=== PATIENT | female | born 1950 | race Caucasian/White ===

== ENCOUNTER → 2024-08-20 | Outpatient (CLI) | payer MEDICARE, BC, SELFPAY ==
--- NOTE | 2024-08-20 10:30 | XR_ITS ---
Examination: Abdomen sonogram, Limited Date and time of exam: August 20, 2024 1030 hours INDICATIONS: Fatty liver diagnosis Technique: Real-time carpenter scale transabdominal sonographic images of the upper abdomen obtained. Findings: Contracted gallbladder Common bile duct 0.2 cm Pancreatic head 2.0 cm Liver 12.6 cm fatty infiltration no focal liver lesions Normal hepatopedal portal venous flow Patent IVC IMPRESSION: Repeat the gallbladder portion of the study with fasting Fatty liver
== END | disposition home or self-care (01) ==
LOC: CDIM 10:24
PROVIDERS: PCP Family Medicine; Referring Provider Nurse Practitioner Family; Visit Provider Nurse Practitioner Family
DX: K76.0 Fatty (change of) liver, not elsewhere classified (principal)
CPT/HCPCS: 76705

== ENCOUNTER → 2024-10-08 | Outpatient (CLI) | payer MEDICARE, BC, SELFPAY ==
[2024-10-21 06:56] LABS: Albumin 4.4 g/dL (3.6-5.1); Estradiol, Free 0.03 pg/mL; Estradiol, Total 2 pg/mL; SHBG 108 nmol/L (14-73); Testosterone, Bioavailable 0.9 ng/dL (0.5-8.8); Testosterone, Free 0.5 pg/mL (0.3-5.0); Testosterone,Total 11 ng/dL (2-45)
== END | disposition home or self-care (01) ==
LOC: COPL 16:24
PROVIDERS: PCP Internal Medicine; Referring Provider Internal Medicine; Visit Provider Internal Medicine
DX: F32.89 Other specified depressive episodes (principal)
CPT/HCPCS: 36415; 82040; 82670; 82681; 84270; 84403

== ENCOUNTER 2024-11-24 09:13 | Emergency (ER) | payer MEDICARE, BC, SELFPAY ==
--- NOTE | 2024-11-24 09:20 | XR_ITS ---
Examination: Left knee 4 views TECHNIQUE: AP oblique lateral axial left knee 4 views 16/04/2020 11/24/2024 0953 hours INDICATIONS: Patient fell today with injury to the knee, knee pain FINDINGS: Acute comminuted fracture patella with 3 main fracture fragments widely Femur tibia fibula appear intact IMPRESSION: Acute comminuted fractures patella with 3 main fracture fragments widely
[2024-11-24 09:22] VITALS: BP 189/98; PULSE 75; PULSE 78; RESP 20; TEMP 36.8; O2SAT 97; BMI 24.1
--- NOTE | 2024-11-24 09:31 | PC.NURSE ---
PATIENT ARRIVED ED VIA EMS SECONDARY TO FALL AND LANDING ON LEFT KNEE. PATIENT WITH POSITION OF COMFORT WITH DEFORMITY TO KNEE CAP AREA. EMS ESTABLISHED IV, ADMINISTERED 50 MEQ FENTANYL. PATIENT ALERT AND OREINTED AT TIME OF ARRIVAL WITH PAIN 5/10 ON PAIN SCALE. PATIENT PLACED IN GOWN AND VITALS OBTAINED. DR. GUERRERO AT BEDSIDE FOR EVALUATION. PATIENT IN POSITION OF COMFORT, CALL LIGHT WITHIN REACH.
--- NOTE | 2024-11-24 09:49 | PD.EDLOWEX ---
Lower Extremity Injury RME/HPI General Chief Complaint: Extremity Injury, Lower Stated Complaint: LEFT KNEE PAIN Time Seen by Provider: 11/24/24 09:19 Arrival date/time: 11/24/24 09:13 RME / HPI RME / HPI Narrative: 73 year old female presented to the ER BIB[facility] with a chief complain of an injury to the left knee. Per patient, she was standing up out of her chair after eating breakfast and felt dizzy and fell onto the floor, landing on her left knee and then continued falling flat on her back. Patient stated that she has no severe pain without movement but with movement has pain. Per EMS, fetany was given prior to arrival. Related Data Home Medications ?Medication ?Instructions ?Recorded ?Confirmed amlodipine 5 mg tablet 5 mg PO QDAY 10/22/20 11/24/24 gabapentin 100 mg capsule 300 mg PO QHS 10/22/20 11/24/24 fluoxetine 20 mg capsule (Prozac) 20 mg PO QDAY 11/24/24 11/24/24 Previous Rx's ?Medication ?Instructions ?Recorded hydrocodone 5 mg-acetaminophen 325 1 tab PO Q6H PRN pain #14 tabs 11/24/24 mg tablet Allergies Allergy/AdvReac Type Severity Reaction Status Date / Time Sulfa (Sulfonamide Allergy Verified 10/19/23 09:13 Antibiotics) Review of Systems Review of Systems Systems Reviewed: All systems reviewed, normal except as documented Narrative Review of Systems: ROS Gen: No fever, no chills, no weight loss EYES: No discharge, no visual changes, no pain HEENT: No ear pain, no congestion, no sore throat PULM: No shortness of breath, no cough, no congestion CV: No chest pain, no dyspnea on exertion, no palpitations GI: No nausea, no vomiting, no diarrhea, no pain, no constipation : No frequency, no urgency, no dysuria Musc/skel: +left knee pain, no back pain Skin: No rash Psyc: No hallucinations, no depression Heme/Lymph: No easy bleeding or bruising tendencies Neuro: No weakness, no headache ED Exam Narrative Physical exam: GENERAL APPEARANCE: alert and oriented x 4, well-developed, well-nourished, no acute distress HEENT: Normocephalic, atraumatic; pupils equal, round, reactive to light; EOMI; mucous membranes pink, moist; oropharynx clear NECK: Supple LUNGS: CTABL; no wheezes, no rales, no rhonchi HEART: Regular rate, regular rhythm; normal S1, S2; no murmurs ABDOMEN: non distended; normal BS; soft, no tenderness, no guarding, no rebound; no masses, no organomegaly, no hernia BACK: no CVA tenderness EXTREMITIES: joint infusion to left knee ; no edema NEUROLOGIC: awake; alert and oriented x4; cranial nerves II-XII grossly intact; no focal sensory or motor deficits PSYCHIATRIC: appropriate mood and affect SKIN: warm, dry, normal color; no rashes Course Quality Measures none Orders Category Date Time Status Apply knee immobilizer NOW Care 11/24/24 10:43 Active Crutches .NOW Care 11/24/24 10:43 Active XR knee comp LT 4V Stat Exams 11/24/24 09:20 Completed Morphine Inj Med 11/24/24 10:03 Discontinued 5 mg IVP X1 ONE Ondansetron Inj [Zofran Inj] Med 11/24/24 10:03 Discontinued 4 mg IV X1 ONE Vital Signs Vital signs: Vital Signs Temperature 98.3 F 11/24/24 09:22 Pulse Rate 75 11/24/24 09:22 Respiratory Rate 20 11/24/24 09:22 Blood Pressure 189/98 H 11/24/24 09:22 Pulse Oximetry (%) 97 11/24/24 09:22 Oxygen Delivery Method Room Air 11/24/24 09:22 Extremity Injury, Lower MDM Narrative MDM Narrative:: IHalima am scribing for and in the presence of Dr. Alas. Patient data External records reviewed:: [facility] previous records Clinical information provided by:: patient and EMS Social determinants that could affect healthcare access:: none Patient has the following chronic illnesses:: none How is presenting disease/condition affected by chronic disease/condition?: uneffected by Evaluation data The following diagnostics were reviewed and interpreted by me:: radiology exam(s) Lab and/or radiology exams considered but not ordered:: none Interpretation Summary: Knee X-Ray 4V, my interpretation: comminuted displaced patella fracture , no dislocation, see full report below. Ordering Physician: Latisha Alas MD Date of Service: 11/24/24 Procedure(s): XR knee comp LT 4V Accession Number(s): [id number] cc: Bernardo Ham MD; Latisha Alas MD~ Examination: Left knee 4 views TECHNIQUE: AP oblique lateral axial left knee 4 views 16/04/2020 11/24/2024 0953 hours INDICATIONS: Patient fell today with injury to the knee, knee pain FINDINGS: Acute comminuted fracture patella with 3 main fracture fragments widely Femur tibia fibula appear intact IMPRESSION: Acute comminuted fractures patella with 3 main fracture fragments widely Dictated By: Bernardo Ham MD Signed By: <Electronically signed by Bernardo Ham MD in OV> 11/24/24 1036 Medications / Prescriptions Medications or Prescriptions considered but not ordered:: none Medication administrations:: Medication Administration History Discontinued Medications Morphine Sulfate (Morphine Sulf Inj 10 Mg/Ml Vial) 5 mg IVP X1 ONE Stop: 11/24/24 10:04 Last Admin: 11/24/24 10:22 Dose: 5 mg Documented By: ITZ Ondansetron HCl (Ondansetron Inj 2 Mg/Ml Inj 2 Ml) 4 mg IV X1 ONE Stop: 11/24/24 10:04 Last Admin: 11/24/24 10:19 Dose: 4 mg Documented By: ITZ see above. Consultations Consultation(s) initiated? (list below): Yes Consultation #1 (Physician, Specialty, Details): I spoke with Dr. Kitchen, Orthopedic Surgeon, to consult about the knee fracture. Dr. Kitchen decided for patient for follow-up with a future appointment in outpatient. Time: 10:29 Diagnosis Extremity Injury, Lower Differential Diagnosis: acute internal derangement of knee and other (knee fracture) Most likely diagnosis given after review of the tests above:: patella fracture Admission Indicated Admission indicated?: not indicated Admission Request Was there a request for admission?: No Disposition Plan Disposition Plan: Discharge Discharge Attestation Discharge Attestation: The patient and all family members were given an opportunity to ask questions and understood the discharge instructions. Discharge instructions specifically effects, indications for sooner follow up or return to the emergency department, and the expected course of current diagnosis. Patient condition: Stable Discharge Plan Plan Patient Disposition: HOME (Self Care) Prescriptions/Referrals Prescriptions/Med Rec: New hydrocodone-acetaminophen 5-325 mg tablet 1 tab PO Q6H MDD 9 PRN (Reason: pain) Qty: 14 0RF No Action amlodipine 5 mg tablet 5 mg PO QDAY gabapentin 100 mg capsule 300 mg PO QHS fluoxetine [Prozac] 20 mg capsule 20 mg PO QDAY Referrals: Carlos Kitchen MD [Physician] - 11/25/24 3:00 pm Problem List Clinical Impression: Patellar fracture Patient/Caregiver Discharge Instructions Education Materials: ED Crutch Walking, ED Patella Fracture Additional Instructions: Follow up with Dr. Kitchen on 11/25/24 at 3pm. Print Language: Macedonian Stand Alone Forms: [facility] Award Info., Patient Portal Info Letter
[2024-11-24] MEDS: ONDANSETRON INJ 2 MG/ML INJ 2 ML 4 MG IV (10:19)
[2024-11-24] MEDS: MORPHINE SULF INJ 10 MG/ML VIAL 5 MG IVP (10:22)
[2024-11-24 10:29] VITALS: BP 149/93; PULSE 82; RESP 16; O2SAT 99
--- NOTE | 2024-11-24 11:15 | PC.NURSE ---
PATIENT UNDERSTANDS DIAGNOSIS AND FOLLOW UP CARE. LUIS WRAP AND KNEE IMMOBILIZER APPLIED. PATIENT TOLERATED WELL. PATIENT ALSO GIVEN CRUTCHES AND INSTRUCTIONS. PATIENT ABLE TO MOVE FROM BED TO CHAIR WITH ASSISTANCE.
== END 2024-11-24 11:31 | disposition home or self-care (01) ==
LOC: SERX 10:50
PROVIDERS: Emergency Provider Emergency Medicine; PCP Internal Medicine
DX: S82.042A Displaced comminuted fracture of left patella, initial encounter for closed fracture (principal); W18.39XA Other fall on same level, initial encounter
CPT/HCPCS: 73564; 96360; 96361; 99284; J2270; J2405

== ENCOUNTER 2024-11-29 07:40 | Day surgery (SDC) | payer MEDICARE, BC, SELFPAY ==
--- NOTE | 2024-11-28 11:31 | EKG_ITS ---
[facility] Test Date: 2024-11-28 Pat Name: ADALI LEAVITT Department: Room: - Gender: Female Communications Clerk: TIMI : 1950 Requested By: Carlos De Jesus Order Number: [id number] Reading MD: Carlos DeJ esus Measurements Intervals [place] Rate: 79 P: 56 CT: 170 QRS: 15 QRSD: 82 T: 36 QT: 383 QTc: 441 Interpretive Statements SINUS RHYTHM Compared to ECG 03/12/2020 13:53:45 T-wave abnormality no longer present /store/S0/[id number].pdf
[2024-11-28 11:37] VITALS: BMI 24.1
[2024-11-28 12:31] LABS: Basophils % (Auto) 0 % (0-2.5); Eosinophils # (Auto) 0.3 Thou/mm3 (0.0-0.5); Eosinophils % (Auto) 5 % (0-10); Hematocrit 32.2 % (36.0-46.0); Hemoglobin 10.4 g/dL (12.0-16.0); Immature Granulocytes % (Auto) 0 % (0-0); Immature Granulocytes Auto 0.02 Thou/mm3 (0.00-0.00); Lymphocytes # (Auto) 1.5 Thou/mm3 (1.0-4.8); Lymphocytes % (Auto) 23 % (10-50); Mean Corpuscular HGB Conc 32.3 g/dl (31.0-37.0); Mean Corpuscular Hemoglobin 30.6 pg (25.0-35.0); Mean Corpuscular Volume 95 fL (80-100); Monocytes # (Auto) 0.7 Thou/mm3 (0.0-0.8); Monocytes % (Auto) 10 % (0-12); Neutrophils # (Auto) 4.1 Thou/mm3 (1.8-7.7); Neutrophils % (Auto) 62 % (37-80); Nucleated Red Blood Cell % 0 /100 WBC (0); Platelet Count 234 Thou/mm3 (140-440); White Blood Count 6.7 Thou/mm3 (3.6-11.0)
[2024-11-28 12:44] LABS: Prothrombin Time 10.9 Seconds (9.0-12.2)
[2024-11-28 12:48] LABS: Partial Thromboplastin Time 23.4 Seconds (22.0-36.0)
--- NOTE | 2024-11-28 12:49 | XR_ITS ---
Examination: Left foot 2 views Technique one AP lateral left foot 2 views Exam date and time: November 28, 2024 1530 hours INDICATIONS: Patient fell 5 days ago with injury to foot, foot pain. FINDINGS: Prominent osteopenia Moderate narrowing first metatarsophalangeal joint No acute fracture IMPRESSION: No acute fracture
[2024-11-28 12:51] LABS: Alanine Aminotransferase 12 U/L (10-49); Albumin, Serum 4.2 gm/dL (3.4-4.8); Albumin/Globulin Ratio 1.8 (1.2-2.2); Alkaline Phosphatase 47 U/L (46-116); Anion Gap 8 (7-16); Aspartate Amino Transferase 16 U/L (0-34); BUN/Creatinine Ratio 18 Ratio (12-20); Bilirubin,Total 0.4 mg/dL (0.3-1.2); Blood Urea Nitrogen 14 mg/dL (9-23); Calcium 8.8 mg/dL (8.3-10.6); Calcium (Corrected) 8.8 mg/dL (8.5-10.1); Carbon Dioxide 27.9 mMol/L (20.0-31.0); Chloride 106 mMol/L (98-107); Creatinine (Component) 0.8 mg/dL (0.6-1.3); Globulin 2.3 gm/dL (2.3-3.5); Glucose 86 mg/dL (74-106); Osmolality,Calculated 282 (275-295); Potassium 4.4 mMol/L (3.4-5.1); Sodium 142 mMol/L (136-145); Total Protein 6.5 gm/dL (5.7-8.2); eGFR > 60 See Note
--- NOTE | 2024-11-28 15:02 | SUR.PREOP ---
Pt's Job notified to bring pt at 0730 tomorrow for surgery.
[2024-11-29] VITALS (14 sets, daily range): BP systolic 112–170; BP diastolic 73–97; PULSE 77–99; RESP 12–22; TEMP 36.1–36.7; O2SAT 93–98; BMI 25.1
--- NOTE | 2024-11-29 09:00 | SUR.PREOP ---
Patient expressed gratitude for prayer before their procedure.
[2024-11-29] MEDS: RINGERS LACTATED 1000 ML 1,000 ML 20 ML IV (09:07)
--- NOTE | 2024-11-29 09:15 | XR_ITS ---
Examination: Left knee 3 views Fluoroscopy TECHNIQUE: AP lateral left knee 3 views Fluoroscopy Exam date and time: November 29, 2024 1129 hours INDICATIONS: Acute comminuted patellar fractures November 24, 2024, operative reduction internal fixation patellar fractures today. FINDINGS: Operative reduction internal fixation patellar fractures with satisfactory alignment Fluoroscopy 34 seconds 3 spot fluoroscopic films radiation dose 0.68 milligray IMPRESSION: Operative reduction internal fixation patellar fractures with satisfactory alignment
--- NOTE | 2024-11-29 11:33 | ESOP_ITS ---
Date of Procedure 11/29/24 Pre Op Diagnosis Displaced fracture of the left patella Post Op Diagnosis Same Procedure Open reduction internal fixation with a small Caprice plate and screws Repair of the retinaculum Findings There is complete displaced fracture of the left patella. The retinaculum on each side was also torn. Procedure Description The patient was given general endotracheal anesthesia. The block was also given. Following that a tourniquet was placed on the left upper thigh. Part was thoroughly prepped and draped. Intravenous antibiotics was given at the time of anesthesia The skin was raised as a flap after making an incision. The length of the incision was about 6 to 7 inches starting from tibial tuberosity up 2 to 3 inches proximal to the upper pole of the patella. Following that the displaced fracture was exposed. Old clotted blood and soft tissue invaginated was removed The wound was irrigated with antibiotic solution. Following that the fracture was reduced and checked under C arm in both AP and lateral position. In the lateral position the articular surface was very well-maintained. Following that the template was used and decision was made to use the smallest plate with no arms. The plate was then mounted over the anterior aspect of the pedicle and checked under C arm. Following that it was anchored nicely with the help of guide pin. The proximal 2 holes were drilled and appropriate sized cortical screws were placed in the middle. Similarly 2 distal holes were drilled and appropriate side cortical screw was placed. Following that the other holes where bent as per the contour of the patella. Following that 3 more proximal interlocking screw and 4 distal interlocking screws were placed. After drilling and measuring appropriate sized screws were placed in each and every instance Position was repeatedly checked under C arm in lateral position and found to be extremely good. Articular surface was very well-maintained The soft tissue over the patella was then repaired with the help of 1 Vicryl. The patellar tendon was repaired with 1 Vicryl. The retinaculum was also re paired with 1 number Vicryl in interrupted fashion. The subcu tissue was closed with 2-0 Vicryl and the skin was closed with a erick Cleaning the wound with hydrogen peroxide solution and sterile dressing was applied. Knee immobilizer was placed Further management. Patient will be nonweight bear for about 6 weeks. Follow- up appointment will be given and patient will be seen within the next few days. Anesthesia GETA and other Pathology / specimen None Estimated Blood Loss 5 Surgeon Carlos K Fidelina, MD Surgical Staff Operation Date: 11/29/24 09:30 Case Staff Anesthesiologist: Robert Munoz RNspeech language therapist: Pedro Mays
--- NOTE | 2024-11-29 11:43 | XR_ITS ---
Examination: Left knee 2 views Technique one AP lateral left knee 2 views Exam date and time: November 29, 2024 1204 hours INDICATIONS: Acute patellar fractures November 24, 2024, status post operative reduction internal fixation patellar fractures today. FINDINGS: Operative reduction internal fixation comminuted patellar fractures with satisfactory alignment. Orthopedic hardware satisfactory position Severe osteopenia IMPRESSION: Operative reduction internal fixation comminuted patellar fractures with satisfactory alignment
--- NOTE | 2024-11-29 11:51 | SUR.PHASEI ---
1151: Pt. AAOx4, vitals stable, breathing unlabored, no complaint of pain or nausea, dressing to left knee CDI, knee immobilized in place, bilateral dorsalis pedis pulses strong and regular, cap refill to bilateral feet less than 3 seconds, report received from MD Munoz and Neftaly TORRES.
--- NOTE | 2024-11-29 12:10 | SUR.PHASEI ---
Rececived report on pt. s/p surgery from Jossie TORRES. Xray at bedside, pt. appears relaxed, AAOx3, VSS. Dressing to left knee CDI.
--- NOTE | 2024-11-29 12:43 | SUR.PHASEII ---
1243: Report received from Ayanna TORRES. Pt. AAOx4, vitals stable, breathing unlabored, no complaint of pain or nausea.
--- NOTE | 2024-11-29 14:20 | SUR.PHASEII ---
1420: Pt. AAOx4, vitals stable, breathing unlabored, no complaint of pain or nausea, dressing to left leg CDI, no active bleed noted, knee immobilized in place, bilateral dorsalis pedis pulses strong and regular, cap refill to bilateral feet less than 3 seconds, pt. able to move bilateral legs, pt. tolerated sips of water well, pt. ambulated to wheelchair with assist, no complications. Gave discharge instructions to the pt. and her ride, both verbalized understanding and had no further questions. Pt. left with all personal belongings.
--- NOTE | 2024-11-29 14:21 | ESHP_ITS ---
RE: ADALI LEAVITT : 1950 DATE OF ADMISSION: 11/29/2024 HISTORY OF PRESENT ILLNESS: The patient came to my office on 11/28/2024 for detailed preop history and physical examination. As per history available, the patient fell at home and injured her left knee. The patient was unable to put weight after that. The patient went to the emergency room. X-ray was obtained, which revealed displaced fracture of the left patella. The patient was given knee immobilizer and . PAST MEDICAL HISTORY: The patient has a history of gastric reflux. No history of diabetes mellitus, high blood pressure, asthma, seizures, chest pain, myocardial infarction, bleeding disorder. DRUG HISTORY: The patient is on; 1. Gabapentin. 2. Hydrocodone. 3. Lamotrigine. 4. Polyethylene glycol. 5. Amoxicillin. 6. Estradiol. ALLERGIES: NIL KNOWN. FAMILY HISTORY AND SOCIAL HISTORY: Noncontributory. PHYSICAL EXAMINATION: GENERAL: Normal built lady. Pulse is 88 per minute. Blood pressure is 126/82. NECK: Soft, supple. No masses felt. Trachea is centrally placed. CARDIOVASCULAR SYSTEM: First and second heart sounds normal. No murmur heard. LUNGS: Bilateral vesicular breath sounds. CHEST: Clear. ABDOMEN: Soft. No masses felt. Bowel sounds present. BREASTS: Not indicated in this case. RECTAL: The patient is advised to see the family physician for rectal examination. EXTREMITIES: Left knee examination reveals mild swelling. There is definite depression between the two poles of the patella. Range of motion not tested due to pain. Neurovascularly it is intact. Ecchymosis, bruise was present. DIAGNOSTIC DATA: X-ray confirmed displaced fracture of the left patella. ASSESSMENT AND PLAN: Diagnosis and prognosis was explained to the patient in detail. I explained that the patient needs surgical fixation to bring the kneecap together and then to put the plate and screws. With the help of pictures and diagram, it was shown to her. Risks of anesthesia were explained and that includes, but not limited to reaction to anesthetic agents, cardiac arrest, or rarely it might be fatal. Risks of operation includes infection and if that happens, the patient may need further surgical procedures sometimes rare complication happens, and if that happens that to be taken care of. No guarantee is given regarding the outcome of the procedure and/or functional outcome and/or pain relief and the patient is fully aware of that. Accordingly, surgery is booked for 11/29/2024. Appropriate lab was done. DT: 11:46:17 TT: 14:19:00 Ref: [id number] - TID: [id number]
--- NOTE | 2024-12-04 10:06 | PD.ANESPROG ---
Documentation for date of: 12/04/24 POST ANESTHESIA NOTE: Patient had GETA and L femoral block for L patella ORIF on 11/29/24. I just called and spoke with her on the phone and she denied any problems from anesthesia and said I'm doing well. Robert Munoz MD Anesthesia Progress Note Progress Note Most recent Vital Signs: Last Vital Signs Temp 98.0 F 11/29/24 14:10 Pulse 92 11/29/24 14:10 Resp 19 11/29/24 14:10 BP 112/73 11/29/24 14:10 Pulse Ox 96 11/29/24 14:10 O2 Flow Rate 2 11/29/24 12:40
== END 2024-11-29 14:20 | disposition home or self-care (01) ==
PROVIDERS: PCP Internal Medicine; Referring Provider Orthopaedic Surgery; Visit Provider Orthopaedic Surgery
PROC: (CPT 27524; principal; 2024-11-29 09:15)
DX: S82.002A Unspecified fracture of left patella, initial encounter for closed fracture (principal); I10 Essential (primary) hypertension; W19.XXXA Unspecified fall, initial encounter; Y92.009 Unspecified place in unspecified non-institutional (private) residence as the place of occurrence of the external cause; Z01.810 Encounter for preprocedural cardiovascular examination
CPT/HCPCS: 27524; 36415; 73560; 73620; 76000; 80053; 85025; 85610; 85730; 93005; A4649; C1713; J0690; J1100; J1171; J2250; J2405; J2704; J2795; J3010; J3490; J7120; L1832

== ENCOUNTER 2024-12-09 09:34 | Observation (INO) | payer MEDICARE, BC, SELFPAY ==
[2024-12-09] VITALS (25 sets, daily range): BP systolic 121–180; BP diastolic 74–99; PULSE 61–92; RESP 8–100; TEMP 36.5–36.8; O2SAT 94–100; BMI 24.1
--- NOTE | 2024-12-09 | XR_ITS ---
Examination: MRI brain without intravenous contrast. Date and time of exam: December 09, 2024 1307 hours INDICATIONS: Altered mental status with dizziness beginning this morning Technique: Multiple axial and sagittal images of the brain obtained. Siemens high-resolution 1.5 Avril short bore scanners utilized. Sagittal sections, T1-weighted, TR 500, TE 14, are performed. Axial sections proton-density and T2-weighted have been obtained. Inversion recovery axial images, TR 9, 260, TE 111, TI 2500. Diffusion weighted images, axial sections, TR 4800, TE 128, B value 1000 Axial sections, ADC map, TR 4800, TE 128 Findings: Enlargement of the sella turcica is not present. The optic chiasm and infundibular are not remarkable. Prepontine and interpeduncular cisterns are not enlarged. There is no localized enlargement of the medulla or ryan. Fourth ventricle and cerebellar tonsils appear normal in position. No subacute area of hemorrhage density is seen. Mass in the cerebellopontine angle region is not evident. Globes symmetrical. Orbital musculature including medial lateral rectus muscles do not exhibit abnormality. Diffusion-weighted images demonstrate no focus of restricted diffusion. Increased white matter signal prominent Mass effect upon the ventricular system is not identified. Impression: Negative for acute hemorrhage mass effect or midline shift No acute infarct Prominent chronic microvascular white matter change
--- NOTE | 2024-12-09 09:58 | EKG_ITS ---
[facility] Test Date: 2024-12-09 Pat Name: ADALI LEAVITT Department: Room: - Gender: Female Manager Medical Affairs: : 1950 Requested By: Stanislav Jalloh Order Number: [id number] Reading MD: Stanislav Jalloh Measurements Intervals [place] Rate: 67 P: 42 MN: 184 QRS: 23 QRSD: 90 T: 44 QT: 418 QTc: 443 Interpretive Statements SINUS RHYTHM Compared to ECG 11/28/2024 12:32:23 No significant changes /store/S0/[id number]/[id number]
--- NOTE | 2024-12-09 10:03 | PD.EDWEAK ---
ED Weakness RME/HPI General Chief complaint: Altered Mental Status Stated complaint: WEAKNESS Time Seen by Provider: 12/09/24 09:53 Arrival date/time: 12/09/24 09:34 Limitations: no limitations RME / HPI RME / HPI Narrative: DR. NGUYEN MAIN ED EVALUATION: 73 year old female presents to the Emergency Department [facility] accompanied by with complaints of increased generalized weakness, slurred speech, headache, and dizziness since 845 AM, episode only lasted 10-15 minutes. At 10 AM when I saw her she states she felt better. Patient states she took hydrocodone 5 mg at 8 AM and right after she felt sick; she states she usually takes naproxen but not hydrocodone and now she did for the pain. Patient had recent left leg surgery for knee cap fracture a week ago; patient has left leg swelling. No chest pain, no abdominal pain, or other symptoms reported at this time. PMHx: Hypertension on amlodepine, Sweet's autoimmune syndrome, and recent left knee cap fracture surgery. Social Hx: No tobacco, alcohol, or substance use. Related Data Home Medications ?Medication ?Instructions ?Recorded ?Confirmed amlodipine 5 mg tablet 10 mg PO QDAY 10/22/20 11/29/24 gabapentin 100 mg capsule 300 mg PO .COMPLEX 10/22/20 11/29/24 fluoxetine 20 mg capsule (Prozac) 40 mg PO QDAY 11/24/24 11/29/24 colchicine 0.6 mg tablet 0.6 mg PO DAILY 11/28/24 11/29/24 estradiol 0.025 mg/24 hr mg topical 11/28/24 semiweekly transdermal patch fluticasone propionate 50 intranasal 11/28/24 mcg/actuation nasal spray,suspension lamotrigine 100 mg tablet,extended mg PO 11/28/24 release 24 hr naproxen 500 mg tablet mg 11/28/24 omeprazole 20 mg capsule,delayed mg 11/28/24 release progesterone micronized 200 mg mg 11/28/24 capsule Previous Rx's ?Medication ?Instructions ?Recorded hydrocodone 5 mg-acetaminophen 325 1 tab PO Q6H PRN pain #14 tabs 11/24/24 mg tablet Allergies Allergy/AdvReac Type Severity Reaction Status Date / Time Sulfa (Sulfonamide Allergy Verified 11/29/24 08:42 Antibiotics) Review of Systems Review of Systems Systems Reviewed: All systems reviewed, normal except as documented Past Medical History Past Medical History NEUROLOGIC: Positive Head Trauma (fell 8 days ago) CARDIAC: Positive Hypercholesterolemia (09/20/2023) and Hypertension RESPIRATORY: Positive Respiratory Disorders and Asthma REPRODUCTIVE: Positive Endometriosis and Previous Pregnancies (x3 natural) MUSCULOSKELETAL: Positive Musculoskeletal Disorders (carpal tunnel both) ENT: Positive Cataracts (both and skin removed from eyes) and Head Trauma (fell 8 days ago) HEMATOLOGIC: Positive Blood Disorders and Anemia PSYCHO/SOCIAL: Positive Psychiatric Problems, Depression and Anxiety OTHER HISTORY: Positive Autoimmune Disease (sweets autoimmune disease), Falls and Chemotherapy (miss diagnosed with RA, methotrexate injection and enbrel) Surgical History SURGICAL: Positive Cardiac Surgery (vein surgery), Knee Sx (LEFT) and Tubal Ligation Social History SMOKING STATUS: Never smoker SUBSTANCE USE: does not use ALCOHOL: Never ED Exam General Limitations: Present no limitations General appearance: Present alert, in no apparent distress and other (pale) Head Head exam: Present atraumatic, normocephalic and normal inspection Eye Eye exam: Present normal appearance, PERRL and EOMI ENT ENT exam: Present normal exam, normal oropharynx and mucous membranes moist Neck Neck exam: Present normal inspection, full ROM and trachea midline Chest Chest inspection: Present normal inspection and symmetric chest wall rise Respiratory Respiratory exam: Present normal lung sounds bilaterally Cardiovascular Cardiovascular exam: Present regular rate, normal rhythm and normal heart sounds Abdominal Exam Abdominal exam: Present soft and normal bowel sounds Extremities Exam Extremities exam: Present pedal edema (1+ edema of left leg) and other (left leg brace) Back Exam Back exam: Present normal inspection and full ROM Neurological Exam Neurological exam: Present alert, oriented X3 and CN II-XII intact Psychiatric Psychiatric exam: Present normal affect and normal mood Skin Skin exam: Present warm, dry, intact and normal color Course Quality Measures none Orders Category Date Time Status Bedside Blood Glucose NOW Care 12/09/24 10:19 Active COVID-19 Screening Questionnaire NOW Care 12/09/24 16:58 Active Ceramics Artist NOW Care 12/09/24 10:20 Active Continuous Pulse Oximetry NOW Care 12/09/24 10:19 Completed Decision to Admit X1 Care 12/09/24 16:57 Active EKG (ED ONLY) *Do not use* NOW Care 12/09/24 09:58 Completed Insert IV NOW Care 12/09/24 10:21 Active MRI Screening NOW Care 12/09/24 10:23 Active NPO NOW Care 12/09/24 10:21 Active Consult to Neurology / Tele-Neurology Stat Cons 12/09/24 14:14 Active Consult to Neurology / Tele-Neurology Stat Cons 12/09/24 16:58 Active EKG (ED Only) Stat Exams 12/09/24 09:58 Draft MR head/brain wo con Stat Exams 12/09/24 Completed US venous doppler LE BI Stat Exams 12/09/24 14:47 Completed Acetaminophen Stat Lab 12/09/24 10:00 Completed Alcohol, Blood Medical Stat Lab 12/09/24 10:00 Completed CBC Stat Lab 12/09/24 10:00 Completed Comprehensive Metabolic Panel Stat Lab 12/09/24 10:00 Completed Drug Screen,Urine Stat Lab 12/09/24 11:20 Completed Magnesium Stat Lab 12/09/24 10:00 Completed Salicylate Stat Lab 12/09/24 10:00 Completed Troponin I Stat Lab 12/09/24 10:00 Completed Urinalysis Stat Lab 12/09/24 11:20 Completed LORazepam [Ativan Inj] Med 12/09/24 12:01 Discontinued 0.5 mg IVP X1 ONE Sodium Chloride 0.9% 500 ml [Ns] 500 ml Med 12/09/24 10:19 Discontinued IV 500 mls/hr Oxygen Delivery NOW RT 12/09/24 10:21 Active Vital Signs Vital signs: Vital Signs Temperature 97.7 F 12/09/24 09:39 Pulse Rate 70 12/09/24 09:39 Respiratory Rate 17 12/09/24 09:39 Blood Pressure 143/80 H 12/09/24 09:39 Pulse Oximetry (%) 100 12/09/24 09:39 Oxygen Delivery Method Room Air 12/09/24 09:39 Weakness MDM Narrative MDM Narrative:: I, Maribel Shaikh, am scribing for and in the presence of Dr. Nguyen. At 1413 hours, MRI came back negative. Acute confusion resolved. Multifactorial causing confusion. No acute stroke. I spoke to daughter a couple of times, she is concerned about the patient. Daughter is concerned that the patient has left flank pain, patient did not complain of pain. She recently had knee cap repair surgery asked about doing about d-dimer but from her recent surgery I opted for an ultrasound instead to rule out DVT. Patient data External records reviewed:: EMS form Clinical information provided by:: patient, EMS and family Social determinants that could affect healthcare access:: none Patient has the following chronic illnesses:: Hypertension on amlodepine, Sweet's autoimmune syndrome, and recent left knee cap fracture surgery. How is presenting disease/condition affected by chronic disease/condition?: exacerbated by Evaluation data The following diagnostics were reviewed and interpreted by me:: lab results, radiology exam(s) and EKG tracing(s) Lab and/or radiology exams considered but not ordered:: none Interpretation Summary: EKG#1: EKG at 1001 hours. Interpreted by me: sinus rhythm, rate 67, no acute changes, SC interval 184 ms, QRS duration 90 ms, QT/QTc 418/433, P-R-T axis 42, 23, and 44 Procedure(s): MR head/brain wo con Accession Number(s): [id number] cc: Stanislav Nguyen MD; Bernardo Ham MD; Reyna Robison MD~ Examination: MRI brain without intravenous contrast. Date and time of exam: December 09, 2024 1307 hours INDICATIONS: Altered mental status with dizziness beginning this morning Technique: Multiple axial and sagittal images of the brain obtained. Siemens high-resolution 1.5 Avril short bore scanners utilized. Sagittal sections, T1-weighted, TR 500, TE 14, are performed. Axial sections proton-density and T2-weighted have been obtained. Inversion recovery axial images, TR 9, 260, TE 111, TI 2500. Diffusion weighted images, axial sections, TR 4800, TE 128, B value 1000 Axial sections, ADC map, TR 4800, TE 128 Findings: Enlargement of the sella turcica is not present. The optic chiasm and infundibular are not remarkable. Prepontine and interpeduncular cisterns are not enlarged. There is no localized enlargement of the medulla or ryan. Fourth ventricle and cerebellar tonsils appear normal in position. No subacute area of hemorrhage density is seen. Mass in the cerebellopontine angle region is not evident. Globes symmetrical. Orbital musculature including medial lateral rectus muscles do not exhibit abnormality. Diffusion-weighted images demonstrate no focus of restricted diffusion. Increased white matter signal prominent Mass effect upon the ventricular system is not identified. Impression: Negative for acute hemorrhage mass effect or midline shift No acute infarct Prominent chronic microvascular white matter change Dictated By: Bernardo Ham MD Medications / Prescriptions Medications or Prescriptions considered but not ordered:: none Medication administrations:: Medication Administration History Discontinued Medications Sodium Chloride (Ns) 500 mls @ 500 mls/hr IV .Q1H ONE Stop: 12/09/24 11:18 Last Infusion: 12/09/24 12:19 Dose: Infused Documented By: Admin: 12/09/24 11:11 Dose: 500 mls/hr Documented By: ABBIE Lorazepam (Lorazepam 2 Mg/Ml Vial) 0.5 mg IVP X1 ONE Stop: 12/09/24 12:02 Last Admin: 12/09/24 12:52 Dose: 0.5 mg Documented By: ABBIE see above Consultations Consultation(s) initiated? (list below): Yes Consultation #1 (Physician, Specialty, Details): Discussed test HPI, PMHx, lab, radiology results and/or management with neurologist Dr. Mitchell. Will do a remote consultation. Time: 14:17 Consultation #2 (Physician, Specialty, Details): Discussed test HPI, PMHx, lab, radiology results and/or management with neurologist Dr. Mitchell. Will consult an admission to the hospitalist. Time: 16:52 Consultation #3 (Physician, Specialty, Details): Discussed test HPI, PMHx, lab, radiology results and/or management with resident working with the hospitalist. Will admit for further evaluation and management. Accepts patient for admission. Time: 17:03 Diagnosis Weakness Differential Diagnosis: sepsis, dehydration and other (TIA) Most likely diagnosis given after review of the tests above:: Acute confusion resolved Admission Indicated Admission indicated?: indicated Admission Request Was there a request for admission?: Yes Admission Attestation Admission request attestation: Discussed case with [] from Hospitalist service regarding admission. Discussed patients ED course, exam findings, labs, and radiology results. The Hospitalist [agrees,declines] to accept the patient for admission. Disposition Plan Disposition Plan: Admit Discharge Plan Plan Patient Disposition: HOME (Self Care) Patient condition on transfer: Stable Prescriptions/Referrals Prescriptions/Med Rec: No Action amlodipine 5 mg tablet 10 mg PO QDAY gabapentin 100 mg capsule 300 mg PO .COMPLEX Rx Instructions: 300 mg orally 4x daily; fluoxetine [Prozac] 20 mg capsule 40 mg PO QDAY hydrocodone-acetaminophen 5-325 mg tablet 1 tab PO Q6H MDD 9 PRN (Reason: pain) Qty: 14 0RF progesterone micronized 200 mg capsule Patient Comments: TAKE 1 CAPSULE BY MOUTH EVERY DAY AT BEDTIME FOR 30 DAYS omeprazole 20 mg capsule,delayed release(DR/EC) Patient Comments: TAKE 1 CAPSULE BY MOUTH EVERY DAY colchicine 0.6 mg tablet 0.6 mg PO DAILY Patient Comments: TAKE 1 TABLET BY MOUTH EVERY DAY fluticasone propionate 50 mcg/actuation spray,suspension INTRANASAL Patient Comments: INSTILL 1 SPRAY INTO EACH NOSTRIL ONCE A DAY DIRECTED FOR 30 DAYS naproxen 500 mg tablet estradiol 0.025 mg/24 hr patch semiweekly TOPICAL Patient Comments: APPLY 1 PATCH TRANSDERMALLY TWICE A WEEK lamotrigine 100 mg tablet extended release 24hr PO Patient Comments: TAKE 1 TABLET BY MOUTH TWICE A DAY Referrals: Reyna Robison MD [Primary Care Provider] - In 1 week Problem List Clinical Impression: Acute confusion Patient/Caregiver Discharge Instructions Education Materials: ED Confusion Additional Instructions: For pain take x2 500 mg tablets (total 1,000 mg) of Tylenol plus your naproxen. Please follow-up with your primary care physician within a week. Return to the Emergency Department as needed. Print Language: Monegasque Stand Alone Forms: [facility] Award Info., Patient Portal Info Letter
--- NOTE | 2024-12-09 10:15 | PC.NURSE ---
NO DEBORA ALERT PER DR. NGUYEN
[2024-12-09 11:10] LABS: Basophils % (Auto) 1 % (0-2.5); Eosinophils # (Auto) 0.4 Thou/mm3 (0.0-0.5); Eosinophils % (Auto) 6 % (0-10); Hemoglobin 10.9 g/dL (12.0-16.0); Immature Granulocytes % (Auto) 1 % (0-0); Immature Granulocytes Auto 0.04 Thou/mm3 (0.00-0.00); Lymphocytes # (Auto) 1.7 Thou/mm3 (1.0-4.8); Lymphocytes % (Auto) 26 % (10-50); Mean Corpuscular HGB Conc 32.1 g/dl (31.0-37.0); Mean Corpuscular Volume 97 fL (80-100); Monocytes # (Auto) 0.6 Thou/mm3 (0.0-0.8); Monocytes % (Auto) 9 % (0-12); Neutrophils # (Auto) 3.9 Thou/mm3 (1.8-7.7); Neutrophils % (Auto) 58 % (37-80); Nucleated Red Blood Cell % 0 /100 WBC (0); Platelet Count 304 Thou/mm3 (140-440); RDW Standard Deviation 49.1 fL (36.4-46.3); Red Blood Count 3.52 Miln/mm3 (4.00-5.20); White Blood Count 6.8 Thou/mm3 (3.6-11.0)
[2024-12-09] MEDS: SODIUM CHLORIDE 0.9% 500 ML 500 ML IV (11:11)
[2024-12-09 11:17] LABS: Acetaminophen < 2.0 mcg/mL (10.0-20.0); Alanine Aminotransferase 13 U/L (10-49); Albumin/Globulin Ratio 1.7 (1.2-2.2); Alcohol, Blood Medical < 3.0 mg/dL (0-10.0); Alkaline Phosphatase 56 U/L (46-116); Anion Gap 9 (7-16); Aspartate Amino Transferase 15 U/L (0-34); BUN/Creatinine Ratio 30 Ratio (12-20); Bilirubin,Total 0.4 mg/dL (0.3-1.2); Blood Urea Nitrogen 24 mg/dL (9-23); Calcium 8.3 mg/dL (8.3-10.6); Calcium (Corrected) 8.3 mg/dL (8.5-10.1); Carbon Dioxide 27.8 mMol/L (20.0-31.0); Chloride 107 mMol/L (98-107); Creatinine (Component) 0.8 mg/dL (0.6-1.3); Globulin 2.4 gm/dL (2.3-3.5); Glucose 76 mg/dL (74-106); Magnesium 2.2 mg/dL (1.6-2.6); Osmolality,Calculated 289 (275-295); Salicylate < 3.0 mg/dL; Sodium 144 mMol/L (136-145); Total Protein 6.4 gm/dL (5.7-8.2); Troponin I < 0.002 ng/mL (0.0-0.045); eGFR > 60 See Note
[2024-12-09 11:44] LABS: Collection Type, Urine Clean Catch; Squamous Epithelial Cell,Urine 0 /hpf (0-5)
[2024-12-09 12:18] LABS: Bilirubin,Urine Negative (Negative); Blood,Urine Negative (Negative); Clarity,Urine Clear (Clear/Hazy); Glucose, Urine Negative (Negative); Ketones,Urine Negative (Negative); Leukocyte Esterase,Urine Negative (Negative); Nitrite,Urine Negative (Negative); PH,Urine 7.5 (5.0-7.0); Protein,Urine Negative (Neg - Trace); RBC,Urine < 1 /hpf (0-3); Specific Gravity,Urine 1.011 (1.001-1.035); Urobilinogen,Urine Negative mg/dL (0.0-1.0); WBC,Urine < 1 /hpf (0-5)
[2024-12-09 12:41] LABS: Color,Urine Lt-Yellow (Lt Yel-Yel)
[2024-12-09] MEDS: LORazepam 2 MG/ML VIAL 0.5 MG IVP (12:52)
[2024-12-09 13:05] LABS: Amphetamine/Methamp Scrn,U Negative (Negative); Barbiturate Screen,Urine Negative (Negative); Benzodiazepines Screen,Urine Negative (Negative); Benzoylecgonine Screen, Ur Negative (Negative); Fentanyl Screen,Urine Negative (Negative); Opiate Screen,Urine Negative (Negative); THC Screen,Urine Negative (Negative)
--- NOTE | 2024-12-09 14:47 | XR_ITS ---
Examination: Venous duplex lower extremity sonogram, bilateral. Date and time of exam: December 09, 2024 1525 hours INDICATIONS: Knee surgery one week ago followed by leg pain and swelling Technique: Multiple sonographic images of the deep venous system have been obtained. B-mode/2-D grayscale imaging of vascular structures and Doppler spectral analysis (waveforms) and color performed Both legs are examined. Findings: Deep venous systems do not demonstrate abnormal echogenicity. All visualized deep veins exhibit compressibility. All visualized deep veins exhibit augmentation. Impression: Negative for deep vein thrombosis
--- NOTE | 2024-12-09 16:50 | PC.NURSE ---
DAUGHTER REQUESTED TO SPEAK WITH CHARGE NURSE. I WENT IN TO SPEAK WITH PATIENT AND DAUGHTER. DAUGHTER CONCERNED THAT PATIENT MAY HAVE ANOTHER EVENT AT HOME AND WANTS A SECOND OPINION. DOES NOT FEEL IT WAS A TIA. I TOLD DAUGHTER THAT I FULLY UNDERSTAND HER CONCERNS THAT THE ER MD DID A FULL WORKUP AND EXPEDITED THE MRI WHICH WAS NORMAL. MD ALSO HAVE THE NEUROLOGIST DR PARKS EVALUATE PT AND SHE STATED PT HAD A TIA AND FELT PT COULD GO HOME AND FOLLOW UP. AT THIS TIME PT ALERT AND ORIENTED, MOVING ALL EXTREMITIES WELL AND EQUAL. I TOLD THE DAUGHTER THAT I WILL TALK TO MD AND SEE IF THEY CAN TRY AND ADMIT PT FOR OBSERVATION
--- NOTE | 2024-12-09 18:28 | PD.RESHP ---
Documentation for date of: 12/09/24 HPI History of Present Illness Chief complaint: Altered Mental Status History of present illness: HPI: Patient seen with daughter at bedside. Patient is a 73-year-old female with past medical history significant for Sweet syndrome, anxiety, depression, spondylosis, history of DVT and PE [2020], varicose veins and primary hypertension presented today with a chief complaint of altered mental status. Around 8:30 AM close patient's last known well. She was talking to her daughter on the phone when she took a hydrocodone along with her morning medication [lamotrigine, fluoxetine, gabapentin, amlodipine]. Subsequently she developed slurred speech, double vision confusion as reported by her daughter. This was also associated with a 10/10 occipital headache, no radiation and no aggravating or relieving symptoms. Denies any presyncope/syncope, palpitations, lightheadedness, chest pain/pressure, sick contacts and recent travel. Upon arrival to the ED at 10:30 AM patient's symptoms had completely resolved. Patient follows up with orthopedic surgeon, Dr. Kitchen and neurologist Dr. Mitchell. ED course: BP 159/74, pulse 74, RR 17, temp 98.1 F, SpO2 100 mL. Hb 10.9, HCT 34 BUN 24, CR 0.8 and corrected calcium 8.37. MR brain showed chronic microvascular white matter changes. In the ED patient received 500 cc normal saline IVF bolus and lorazepam 0.5 Mg IV x 1. Patient will be admitted for workup and management of altered mental status. Neurologist, Dr. Mitchell consulted and closely following the case. Past medical history: Primary HTN Sweet Syndrome Depression Anxiety Spondylosis DVT and PE 2020 Varicose veins Medication list: Amlodipine 10mg po daily Naproxen prn Hydrocodone 5/325 Gabapentin 400mg po QID Lamotrigine 100mg po bid Fluxetine 40mg po daily Omeprazole 20mg po daily Past surgical history: Left Patellar ORIF by Dr. 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 3 kids Tobacco use: Denies ETHO use: Socially Illicit drug use: Denies Social History Note: lives with Family History: Dad - Melanoma Exam Vital Signs Temp Pulse Resp BP Pulse Ox O2 Del Method 98.1 F 72 17 121/88 H 100 Room Air 12/09/24 18:08 12/09/24 18:08 12/09/24 18:08 12/09/24 18:08 12/09/24 18:08 12/09/24 18:08 Narrative Exam Constitutional Alert, oriented x 3 and comfortable. Elderly female HEENT Vision grossly intact. Patent nares. Trachea midline Respiratory Chest normal on inspection and clear auscultation bilaterally Cardiovascular S1 and S2 audible, RRR. No murmurs carotid bruit. No gross JVD. Abdominal Soft and non tender to palpation in all quadrants. BS + Genitourinary No bladder tenderness, no flank pain. Normal to palpation Musculoskeletal Extremities tone within normal limits. No LE edema. Skin Warm, dry and intact. Left leg covered in brace Psychiatric Patient has good affect, is cooperative Neurological CN II - XII grossly intact. Extremity motor and sensation grossly intact. 1A: Level of Consciousness - Normal +0 1B: Ask Month and Age - Both correct + 0 1C: Blink Eyes & Squeeze Hands - Performs Both Tasks + 0 2: Test Horizontal Extraocular Movements - Normal + 0 3: Test Visual [place] - Normal + 0 4: Test Facial Palsy (Use Grimace if Obtunded) - Normal + 0 5A: Test Left Arm Motor Drift - No Drift for 10 Seconds + 0 5B: Test Right Arm Motor Drift - No Drift for 10 Seconds + 0 6A: Test Left Leg Motor Drift - No Drift for 5 Seconds + 0 6B: Test Right Leg Motor Drift - No Drift for 5 Seconds + 0 7: Test Limb Ataxia (FNF/Heel-Chapa) - No Ataxia + 0 8: Test Sensation - Normal; No sensory loss + 0 9: Test Language/Aphasia - Normal + 0 10: Test Dysarthria - Normal + 0 11: Test Extinction/Inattention - No abnormality + 0 NIHSS Score: 0 Results: Labs 12/09/24 10:00 12/09/24 10:00 Labs: Short CBC 12/09/24 Range/Units 10:00 WBC 6.8 (3.6-11.0) Thou/mm3 Hgb 10.9 L (12.0-16.0) g/dL Hct 34.0 L (36.0-46.0) % Plt Count 304 D (140-440) Thou/mm3 BMP 12/09/24 10:00 Sodium 144 Potassium 4.0 Chloride 107 Carbon Dioxide 27.8 BUN 24 H Creatinine 0.8 Glucose 76 Calcium 8.3 Cardiac Enzymes 12/09/24 Range/Units 10:00 Troponin I < 0.002 (0.0-0.045) ng/mL Liver Function 12/09/24 Range/Units 10:00 Total Bilirubin 0.4 (0.3-1.2) mg/dL AST 15 (0-34) U/L ALT 13 (10-49) U/L Alkaline Phosphatase 56 (46-116) U/L Albumin 4.0 (3.4-4.8) gm/dL Urine 12/09/24 Range/Units 11:20 Urine Color Lt-Yellow (Lt Yel-Yel) Urine Clarity Clear (Clear/Hazy) Urine pH 7.5 H (5.0-7.0) Ur Specific [place] 1.011 (1.001-1.035) Urine Protein Negative (Neg - Trace) Urine Glucose (UA) Negative (Negative) Quality Measures Quality Measures none Advance care planning discussed with:: patient Medications Home Medications and Allergies Home Medications ?Medication ?Instructions ?Recorded ?Confirmed ?Type amlodipine 5 mg tablet 10 mg PO QDAY 10/22/20 11/29/24 History gabapentin 100 mg capsule 300 mg PO .COMPLEX 10/22/20 11/29/24 History fluoxetine 20 mg capsule (Prozac) 40 mg PO QDAY 11/24/24 11/29/24 History colchicine 0.6 mg tablet 0.6 mg PO DAILY 11/28/24 11/29/24 History estradiol 0.025 mg/24 hr mg topical 11/28/24 History semiweekly transdermal patch fluticasone propionate 50 intranasal 11/28/24 History mcg/actuation nasal spray,suspension lamotrigine 100 mg tablet,extended mg PO 11/28/24 History release 24 hr naproxen 500 mg tablet mg 11/28/24 History omeprazole 20 mg capsule,delayed mg 11/28/24 History release progesterone micronized 200 mg mg 11/28/24 History capsule Allergies Allergy/AdvReac Type Severity Reaction Status Date / Time Sulfa (Sulfonamide Allergy Verified 11/29/24 08:42 Antibiotics) Visit Medications Acetaminophen (Acetaminophen 325 Mg Tablet) 650 mg PO Q6H PRN PRN Reason: Fever >100.3 or pain Stop: 01/08/25 18:22 Albuterol/Ipratropium (Albuterol/Ipratropium (Duoneb) Rt Alicia 3 Ml Nebu) 3 ml INH Q4HR PRN PRN Reason: SHORTNESS OF BREATH OR WHEEZE Stop: 01/08/25 18:22 Heparin Sodium (Porcine) (Heparin Sod Inj 5000 Unit/Ml Vial) 5,000 unit SC BID OSBALDO Stop: 12/23/24 20:59 Ondansetron HCl (Ondansetron Inj 2 Mg/Ml Inj 2 Ml) 4 mg IV Q6H PRN; Protocol PRN Reason: NAUSEA OR VOMITING Stop: 01/08/25 18:22 Discontinued Medications Sodium Chloride (Ns) 500 mls @ 500 mls/hr IV .Q1H ONE Stop: 12/09/24 11:18 Last Infusion: 12/09/24 12:19 Dose: Infused Lorazepam (Lorazepam 2 Mg/Ml Vial) 0.5 mg IVP X1 ONE Stop: 12/09/24 12:02 Last Admin: 12/09/24 12:52 Dose: 0.5 mg Assessment & Plan Plan Patient is a 73-year-old female with past medical history significant for Sweet syndrome, anxiety, depression, spondylosis, history of DVT and PE [2021], varicose veins and primary hypertension presented today with a chief complaint of altered mental status. Patient will be admitted for workup and management of altered mental status. Altered mental status possibly secondary to acute toxic encephalopathy Stroke rule out Patient took hydrocodone 5 Mg this a.m. along with her home medication records lamotrigine, gabapentin and fluoxetine]. After which she became altered upon arrival to the ED with symptoms completely resolved. MRI brain showed chronic microvascular white matter changes. DDx: Polypharmacy, TIA, heavy metals Plan: - Patient is started on stroke protocol - Neuro checks q 4H - Head of bed elevated to 30 degrees - Swallow eval and bedside swallow screen ordered - PT/OT referrals placed - Seizure precautions in place - Allow permissive HTN. Antihypertensives if BP >220/120, with a goal of reduction in BP during the first 24 hours - HbA1C, Lipid panel, TSH ordered - ECHO with bubble study ordered - PRN Acetaminophen 650mg to avoid hyperthermia - PRN Labetaol 10 mg IV Q10 mins for SBP > 220 - DVT Prophylaxis with Heparin 5000 U SC BID - Dr Mitchell consulted, pending in-house Neurology recommendations Primary hypertension Home medication amlodipine 10 Mg p.o. daily Plan: ? Antihypertensives on hold for permissive hypertension ? Labetalol 10 Mg IV every 10 minutes for SBP greater than 220 Anxiety Depression Home medication lamotrigine 100 Mg p.o. twice daily, gabapentin 400 Mg p.o. 4 times daily, and fluoxetine 40 Mg p.o. daily Plan: ? Medication on hold in light of altered mental status ? Resume home medication gabapentin 400 Mg p.o. 4 times daily Spondylosis History of DVT and PE [2020] Varicose veins Sweet syndrome Continue outpatient Follow up Health maintenance: Disposition: Pending Neuro recommendations Diet: Cardiac Lines: pIVs GI Prophylaxis: None Thrombo Prophylaxis: Heparin Code status: FULL CODE Plan of care discussed with Attending Dr. Laura Alonzo MD PGY 1 Disclaimer: This note was dictated by speech recognition. Minor errors in junior graphic designer may be present due to voice recognition software. Attending Provider Attestation/Addendum I attest that I was physically present for the evaluation, physical examination, lab and imaging review of the patient with the residents. I discussed the case with the residents and agree with the findings and plans of care as documented above. Bill Sanchez MD
[2024-12-09] MEDS: CALCIUM GLUCONATE 10% INJ 1 GM/10 ML VIAL IV (19:31)
--- NOTE | 2024-12-09 19:32 | PD.RESCONSUL ---
HPI Data of Consult Requesting Physician: Bill Sanchez MD Admitting Provider: Bill Sanchez MD Attending Provider: Bill Sanchez MD Primary Care Provider: Reyna Robison MD Consult Narrative Reason for consult: episode of slurred speech History of present illness: The patient is a 77-year-old female with a previous medical history of hypertension, anxiety, depression, hyperlipidemia who came to the ED due to generalized weakness, slurred speech, headache and dizziness that started at 8:45 AM lasted approximately 10 to 15 minutes and according to the patient resolved when she was in the ED. Recently she underwent ORIF for left patella fracture. She is following with psychiatrist for her anxiety and depression. ED course: Blood pressure 143/80, pulse 70, afebrile, saturating well on room air. Labs showed WBC count 6.8, hemoglobin 10.9, platelets 304. Sodium 144, potassium 4.0, EGFR more than 60, T. bili 0.4, AST 15, ALT 13. Brain MRI was negative for acute infarct, showed prominent chronic microvascular white matter changes EKG showed sinus rhythm. Venous Doppler ultrasound was negative for DVT. Neurology was consulted for episode of dizziness, slurred speech and general weakness. cc:: cc: Bill Sanchez MD Review of Systems Review of Systems Systems Reviewed: All systems reviewed, normal except as documented Past Medical History Past Medical History NEUROLOGIC: Positive Head Trauma (fell 8 days ago) CARDIAC: Positive Hypercholesterolemia (09/20/2023) and Hypertension RESPIRATORY: Positive Respiratory Disorders and Asthma REPRODUCTIVE: Positive Endometriosis and Previous Pregnancies (x3 natural) MUSCULOSKELETAL: Positive Musculoskeletal Disorders (carpal tunnel both) ENT: Positive Cataracts (both and skin removed from eyes) and Head Trauma (fell 8 days ago) HEMATOLOGIC: Positive Blood Disorders and Anemia PSYCHO/SOCIAL: Positive Psychiatric Problems, Depression and Anxiety OTHER HISTORY: Positive Autoimmune Disease (sweets autoimmune disease), Falls and Chemotherapy (miss diagnosed with RA, methotrexate injection and enbrel) Surgical History SURGICAL: Positive Cardiac Surgery (vein surgery), Knee Sx (LEFT) and Tubal Ligation Social History SMOKING STATUS: Never smoker SUBSTANCE USE: does not use ALCOHOL: Never Exam Vital Signs Temp Pulse Resp BP Pulse Ox O2 Del Method 98.1 F 74 18 121/88 H 100 Room Air 12/09/24 18:08 12/09/24 19:18 12/09/24 19:18 12/09/24 18:08 12/09/24 19:18 12/09/24 18:08 Narrative Exam Gen: Well-developed and well-nourished. HEENT: NCAT, PERRLA, EOMI, MMM, anicteric conjunctivae. CVS: normal S1 and S2. RRR. No M/R/G. Resp: CTA B/L. No rhonchi, rales, crackles or wheezing. Abd: soft, non-tender, non-distended. BS+ in all 4 quadrants. MSK:Range of motion restricted in left lower extremity. Mild left ankle swelling. Neuro: CN II-XII grossly intact. Strength 5/5 in BUE & BLE. Alert and oriented x3. Psych: appropriate mood and affect. Results Labs 12/10/24 05:16 12/10/24 05:16 Labs: Short CBC 12/09/24 Range/Units 10:00 WBC 6.8 (3.6-11.0) Thou/mm3 Hgb 10.9 L (12.0-16.0) g/dL Hct 34.0 L (36.0-46.0) % Plt Count 304 D (140-440) Thou/mm3 BMP 12/09/24 10:00 Sodium 144 Potassium 4.0 Chloride 107 Carbon Dioxide 27.8 BUN 24 H Creatinine 0.8 Glucose 76 Calcium 8.3 Cardiac Enzymes 12/09/24 Range/Units 10:00 Troponin I < 0.002 (0.0-0.045) ng/mL Liver Function 12/09/24 Range/Units 10:00 Total Bilirubin 0.4 (0.3-1.2) mg/dL AST 15 (0-34) U/L ALT 13 (10-49) U/L Alkaline Phosphatase 56 (46-116) U/L Albumin 4.0 (3.4-4.8) gm/dL Urine 12/09/24 Range/Units 11:20 Urine Color Lt-Yellow (Lt Yel-Yel) Urine Clarity Clear (Clear/Hazy) Urine pH 7.5 H (5.0-7.0) Ur Specific [place] 1.011 (1.001-1.035) Urine Protein Negative (Neg - Trace) Urine Glucose (UA) Negative (Negative) Quality Measures Quality Measures none Advance care planning discussed with:: other Medications Home Medications and Allergies Home Medications ?Medication ?Instructions ?Recorded ?Confirmed ?Type amlodipine 5 mg tablet 10 mg PO QDAY 10/22/20 12/09/24 History gabapentin 100 mg capsule 300 mg PO .COMPLEX 10/22/20 12/09/24 History fluoxetine 20 mg capsule (Prozac) 40 mg PO QDAY 11/24/24 12/09/24 History colchicine 0.6 mg tablet 0.6 mg PO DAILY 11/28/24 12/09/24 History estradiol 0.025 mg/24 hr 0.025 mg topical Q72H 11/28/24 12/09/24 History semiweekly transdermal patch fluticasone propionate 50 1 spray intranasal Q12H 11/28/24 12/09/24 History mcg/actuation nasal spray,suspension lamotrigine 100 mg tablet,extended 100 mg PO QDAY 11/28/24 12/09/24 History release 24 hr omeprazole 20 mg capsule,delayed 20 mg PO QDAY 11/28/24 12/09/24 History release progesterone micronized 200 mg 200 mg PO QDAY 11/28/24 12/09/24 History capsule Allergies Allergy/AdvReac Type Severity Reaction Status Date / Time Sulfa (Sulfonamide Allergy Verified 11/29/24 08:42 Antibiotics) Visit Medications Acetaminophen (Acetaminophen 325 Mg Tablet) 650 mg PO Q6H PRN PRN Reason: Fever >100.3 or pain 1-3 Stop: 01/08/25 18:22 Albuterol/Ipratropium (Albuterol/Ipratropium (Duoneb) Rt Alicia 3 Ml Nebu) 3 ml INH Q4HR PRN PRN Reason: SHORTNESS OF BREATH OR WHEEZE Stop: 01/08/25 18:22 Heparin Sodium (Porcine) (Heparin Sod Inj 5000 Unit/Ml Vial) 5,000 unit SC BID OSBALDO Stop: 12/23/24 20:59 Ketorolac Tromethamine (Ketorolac Inj 30 Mg/Ml Vial) 15 mg IVP Q6HR PRN PRN Reason: PAIN SCALE 7-10 (Severe Stop: 12/14/24 18:26 Labetalol HCl (Labetalol Inj 5 Mg/Ml Vial 20 Ml) 10 mg IVP Q10MIN PRN PRN Reason: SBP > 220 Stop: 01/08/25 18:26 Ondansetron HCl (Ondansetron Inj 2 Mg/Ml Inj 2 Ml) 4 mg IV Q6H PRN; Protocol PRN Reason: NAUSEA OR VOMITING Stop: 01/08/25 18:22 Discontinued Medications Calcium Gluconate (Calcium Gluconate 10% Inj 1 Gm/10 Ml Vial) 1 gm IV X1 ONE Stop: 12/09/24 19:03 Last Admin: 12/09/24 19:31 Dose: 1 gm Sodium Chloride (Ns) 500 mls @ 500 mls/hr IV .Q1H ONE Stop: 12/09/24 11:18 Last Infusion: 12/09/24 12:19 Dose: Infused Lorazepam (Lorazepam 2 Mg/Ml Vial) 0.5 mg IVP X1 ONE Stop: 12/09/24 12:02 Last Admin: 12/09/24 12:52 Dose: 0.5 mg Assessment & Plan Plan The patient is a 77-year-old female with a previous medical history of hypertension, anxiety, depression, hyperlipidemia who came to the ED due to generalized weakness, slurred speech, headache and dizziness that started at 8:45 AM lasted approximately 10 to 15 minutes and according to the patient resolved when she was in the ED. Neurology was consulted for episode of dizziness, slurred speech and general weakness. #Acute encephalopathy #Possible TIA Patient has risk factors for possible CVA (HTN, HLP) and her symptaoms has resolved. MRI showed chronic microvascular changes. ASCVD risk is 18.7%. Plan: - Blood pressure control - Lipid panel - Educated patient on statin therapy - Atorvastatin 40 mg qday - DVT prophylaxis - Euthermia and euglycemia - Physical therapy eval #Depression #Anxiety #Left patellar fracture s/p ORIF #Hypertension - management per primary team Plan of care discussed with attending Dr. Mitchell. Cesia Salgado MD, PGY 1. Attending Provider Attestation/Addendum I personally have seen and examined the patient at the bedside virtually and I agreed with resident's findings, assessment and plan of care. Reassurance given to the patient regarding the negative workup. Follow-up as an outpatient continue with aspirin and statin
[2024-12-09] MEDS: HEPARIN SOD INJ 5000 UNIT/ML VIAL SC (21:08)
[2024-12-09] MEDS: ACETAMINOPHEN 325 MG TABLET 650 MG PO (22:57)
[2024-12-10] VITALS (7 sets, daily range): BP systolic 123–165; BP diastolic 71–98; PULSE 70–84; RESP 16–95; TEMP 36.2–36.3; O2SAT 95–97; BMI 25.4
[2024-12-10] MEDS: GABAPENTIN 100 MG CAPSULE 400 MG PO (05:16)
[2024-12-10 06:19] LABS: Basophils % (Auto) 1 % (0-2.5); Eosinophils # (Auto) 0.5 Thou/mm3 (0.0-0.5); Eosinophils % (Auto) 8 % (0-10); Hematocrit 31.6 % (36.0-46.0); Hemoglobin 10.6 g/dL (12.0-16.0); Immature Granulocytes % (Auto) 1 % (0-0); Immature Granulocytes Auto 0.03 Thou/mm3 (0.00-0.00); Lymphocytes # (Auto) 1.8 Thou/mm3 (1.0-4.8); Lymphocytes % (Auto) 27 % (10-50); Mean Corpuscular HGB Conc 33.5 g/dl (31.0-37.0); Mean Corpuscular Volume 92 fL (80-100); Monocytes # (Auto) 0.6 Thou/mm3 (0.0-0.8); Monocytes % (Auto) 8 % (0-12); Neutrophils # (Auto) 3.7 Thou/mm3 (1.8-7.7); Neutrophils % (Auto) 56 % (37-80); Nucleated Red Blood Cell % 0 /100 WBC (0); Platelet Count 300 Thou/mm3 (140-440); RDW Standard Deviation 47.5 fL (36.4-46.3); Red Blood Count 3.42 Miln/mm3 (4.00-5.20); White Blood Count 6.6 Thou/mm3 (3.6-11.0)
[2024-12-10 06:42] LABS: Alanine Aminotransferase 10 U/L (10-49); Albumin, Serum 3.8 gm/dL (3.4-4.8); Albumin/Globulin Ratio 1.7 (1.2-2.2); Alkaline Phosphatase 55 U/L (46-116); Anion Gap 9 (7-16); Aspartate Amino Transferase 13 U/L (0-34); BUN/Creatinine Ratio 21 Ratio (12-20); Bilirubin,Total 0.4 mg/dL (0.3-1.2); Blood Urea Nitrogen 19 mg/dL (9-23); Calcium 8.5 mg/dL (8.3-10.6); Calcium (Corrected) 8.7 mg/dL (8.5-10.1); Carbon Dioxide 26.7 mMol/L (20.0-31.0); Cardiac Risk Estimate 6.4 RATIO (3.7-5.6); Chloride 106 mMol/L (98-107); Cholesterol 229 mg/dL (132-200); Creatinine (Component) 0.9 mg/dL (0.6-1.3); Globulin 2.3 gm/dL (2.3-3.5); Glucose 137 mg/dL (74-106); HDL Cholesterol 36 mg/dL (40-60); LDL Cholesterol,Calculated 146 mg/dL (0-130); Magnesium 1.9 mg/dL (1.6-2.6); Osmolality,Calculated 287 (275-295); Sodium 142 mMol/L (136-145); Thyroid Stimulating Hormone 2.32 uIU/mL (0.55-4.78); Total Protein 6.1 gm/dL (5.7-8.2); Triglycerides 236 mg/dL (30-150); eGFR > 60 See Note
[2024-12-10 08:39] LABS: Glucose Estimated Average 100 mg/dL (80-131); Hemoglobin A1C 5.1 % Hgb (4.8-6.0)
--- NOTE | 2024-12-10 08:44 | ESPR_ITS ---
Documentation for date of: 12/10/24 Subjective Subjective Interval history: Patient was seen and examined by the bedside. No acute overnight events. Patient denies dizziness, weakness. Pending PT eval. Exam Vital Signs Temp Pulse Resp BP Pulse Ox O2 Del Method 97.1 F 75 19 123/71 97 Room Air 12/10/24 08:00 12/10/24 08:00 12/10/24 08:00 12/10/24 08:00 12/10/24 08:00 12/10/24 08:00 Narrative Exam Gen: Well-developed and well-nourished. HEENT: NCAT, PERRLA, EOMI, MMM, anicteric conjunctivae. CVS: normal S1 and S2. RRR. No M/R/G. Resp: CTA B/L. No rhonchi, rales, crackles or wheezing. Abd: soft, non-tender, non-distended. BS+ in all 4 quadrants. MSK: Good ROM in BUE & BLE. No edema or rash. Neuro: CN II-XII grossly intact. Strength 5/5 in BUE & BLE. Alert and oriented x3. Psych: appropriate mood and affect. Objective Labs 12/10/24 05:16 12/10/24 05:16 Labs: Laboratory Results - last 24 hr 12/09/24 12/09/24 12/10/24 10:00 11:20 05:16 WBC 6.8 6.6 RBC 3.52 L 3.42 L Hgb 10.9 L 10.6 L Hct 34.0 L 31.6 L MCV 97 92 MCH 31.0 31.0 MCHC 32.1 33.5 RDW Std Deviation 49.1 H 47.5 H Plt Count 304 D 300 Neut % (Auto) 58 56 Lymph % (Auto) 26 27 [place] % (Auto) 9 8 Eos % (Auto) 6 8 Baso % (Auto) 1 1 Neut # (Auto) 3.9 3.7 Lymph # (Auto) 1.7 1.8 [place] # (Auto) 0.6 0.6 Eos # (Auto) 0.4 0.5 Baso # (Auto) 0.0 0.0 Immature Gran # (Auto) 0.04 H 0.03 H Absolute Nucleated RBC 0.00 0.00 Immature Gran % 1 H 1 H Nucleated RBC % 0 0 Sodium 144 142 Potassium 4.0 4.0 Chloride 107 106 Carbon Dioxide 27.8 26.7 Anion Gap 9 9 BUN 24 H 19 Creatinine 0.8 0.9 Estim Creat Clear Calc 51.0 L 50.0 L eGFR > 60 > 60 BUN/Creatinine Ratio 30 H 21 H Glucose [address] Glu mg/dL 100 Hemoglobin A1c 5.1 Calculated Osmolality 289 287 Calcium 8.3 8.5 Corrected Calcium 8.3 L 8.7 Phosphorus 4.0 Magnesium 2.2 1.9 Total Bilirubin 0.4 0.4 AST 15 13 ALT 13 10 Alkaline Phosphatase 56 55 Troponin I < 0.002 Total Protein 6.4 6.1 Albumin 4.0 3.8 Globulin 2.4 2.3 Albumin/Globulin Ratio 1.7 1.7 Triglycerides 236 H Cholesterol 229 H LDL Cholesterol, Calc 146 H HDL Cholesterol 36 L Cholesterol/HDL Ratio 6.4 H TSH 2.32 Ur Collection Type Clean Catch Urine Color Lt-Yellow Urine Clarity Clear Urine pH 7.5 H Ur Specific [place] 1.011 Urine Protein Negative Urine Glucose (UA) Negative Urine Ketones Negative Urine Blood Negative Urine Nitrite Negative Urine Bilirubin Negative Urine Urobilinogen (Auto) Negative Ur Leukocyte Esterase Negative Urine RBC < 1 Urine WBC < 1 Ur Squamous Epith Cells 0 Urine Bacteria None Salicylates < 3.0 Urine Opiates Screen Negative Urine Fentanyl Screen Negative Acetaminophen < 2.0 L Ur Barbiturates Screen Negative U Amphetamin/Meth Scrn Negative U Benzodiazepines Scrn Negative U Cocaine Metab Screen Negative U Marijuana (THC) Screen Negative Ethyl Alcohol < 3.0 Quality Measures Quality Measures VTE prophylaxis Advance care planning discussed with:: other Assessment & Plan Assessment Current Active Medications: Generic Name Dose Route Start Last Admin Trade Name Freq PRN Reason Stop Dose Admin Acetaminophen 650 mg 12/09/24 18:23 12/09/24 22:57 Acetaminophen 325 Mg Tablet PO 01/08/25 18:22 650 mg Q6H PRN Administration Fever >100.3 or pain 1-3 Albuterol/Ipratropium 3 ml 12/09/24 18:23 Albuterol/Ipratropium (Duoneb) Rt Alicia 3 Ml Nebu INH 01/08/25 18:22 Q4HR PRN SHORTNESS OF BREATH OR WHEEZE Atorvastatin Calcium 20 mg 12/10/24 21:00 Atorvastatin Calcium 20 Mg Tablet PO 01/09/25 20:59 HS OSBALDO Gabapentin 400 mg 12/09/24 21:00 12/10/24 05:16 Gabapentin 100 Mg Capsule PO 01/08/25 20:59 400 mg QID OSBALDO Administration Heparin Sodium (Porcine) 5,000 unit 12/09/24 21:00 12/09/24 21:08 Heparin Sod Inj 5000 Unit/Ml Vial SC 12/23/24 20:59 5,000 unit BID OSBALDO Administration Ketorolac Tromethamine 15 mg 12/09/24 18:27 Ketorolac Inj 30 Mg/Ml Vial IVP 12/14/24 18:26 Q6HR PRN PAIN SCALE 7-10 (Severe Labetalol HCl 10 mg 12/09/24 18:27 Labetalol Inj 5 Mg/Ml Vial 20 Ml IVP 01/08/25 18:26 Q10MIN PRN SBP > 220 Ondansetron HCl 4 mg 12/09/24 18:23 Ondansetron Inj 2 Mg/Ml Inj 2 Ml IV 01/08/25 18:22 Q6H PRN NAUSEA OR VOMITING Protocol Plan The patient is a 77-year-old female with a previous medical history of hypertension, anxiety, depression, hyperlipidemia who came to the ED due to generalized weakness, slurred speech, headache and dizziness that started at 8:45 AM lasted approximately 10 to 15 minutes and according to the patient resolved when she was in the ED. #Acute encephalopathy, resolved #Possible TIA Patient has risk factors for possible CVA (HTN, HLP) and her symptaoms has resolved. MRI showed chronic microvascular changes. ASCVD risk is 18.7%. 12/10/24: LDL 146, HDL 36. Plan: - Blood pressure control - Lipid panel - Educated patient on statin therapy - Atorvastatin 40 mg qday - DVT prophylaxis - Euthermia and euglycemia - Physical therapy eval - aspirin 81 mg qday on discharge #Depression #Anxiety #Left patellar fracture s/p ORIF #Hypertension - management per primary team Plan of care discussed with attending Dr. Mitchell. Cesia Salgado MD, PGY 1. Attending Provider Attestation/Addendum I have reviewed the patient's chart independently and agree with resident's findings, assessment and plan of care. Patient is stable for discharge home on aspirin and statin. Follow-up in 2 weeks.
[2024-12-10] MEDS: HEPARIN SOD INJ 5000 UNIT/ML VIAL SC (09:43)
--- NOTE | 2024-12-10 10:23 | PC.SS ---
JOURNAL ENTRY AUDIT CLERK conducted bedside contact with the patient conduct initial assessment and to discuss discharge planning.? Patient confirmed demographic information.? Patient resides at home with spouse, Job Coffey .? Patient utilizes a walker to assist with ambulation.? Patient does not require use of home oxygen.? Patient requires assistance with completion of ADL?s.? Patient identified daughter, Lela Clarke ; as surrogate medical decision maker.? Patient?s PCP is Reyna Robison.? Patient does not possess any specialty providers.? Patient utilizes [facility] for medication services.? Patient utilizes a [facility]-P[facility].? Patient requesting transition to SNF.? Preferred SNF is [facility].? PT evaluation is pending.? Patient possesses a history of depression, prescribed Prozac.? Plan is for the patient to discharge to SNF.? office services clerk to assist with arranging transportation on behalf of the patient.? No further discharge needs identified by the patient.? No further intervention required at this time, community mental health social worker will be available to address any further concerns.? Next of Kin: Lela Tricia D/C Plan: SNF
[2024-12-10] MEDS: FLUoxetine HCL 10 MG CAPSULE 40 MG PO (11:41)
[2024-12-10] MEDS: GABAPENTIN 100 MG, GABAPENTIN 300 MG 400 MG PO ×2 (11:41→17:26)
[2024-12-10] MEDS: lamoTRIgine 25 MG CHEW 100 MG PO (11:41)
--- NOTE | 2024-12-10 13:57 | PC.PT ---
Patient is safe to ambulate to the bathroom and sit in the chair at bedside with a FWW and 1 staff assist. RN made aware.
[2024-12-10] MEDS: ACETAMINOPHEN 325 MG TABLET 650 MG PO (15:10)
[2024-12-10] MEDS: amLODIPine BESYLATE 5 MG TABLET 10 MG PO (15:10)
--- NOTE | 2024-12-10 16:40 | ESDS_ITS ---
Planned Discharge Date 12/10/24 DS: Providers Provider Date of admission: 12/09/24 18:23 Primary care physician: Reyna Robison MD Admitting Provider: Bill Sanchez MD Attending Provider on Admission: Bill Sanchez MD Consults: 12/09/24 14:14 Consult to Neurology / Tele-Neurology Stat Comment: Consulting Provider: Mike Mitchell 12/09/24 16:58 Consult to Neurology / Tele-Neurology Stat Comment: Consulting Provider: Mike Mitchell 12/09/24 18:39 Referral Physical Therapy Routine Comment: Physician Instructions: Instructions: Stroke rule out Referral Speech Therapy Routine Comment: Stroke rule out 12/10/24 10:18 Referral Wound Care Routine Comment: Attending Provider on DC: Bandar Daugherty MD Discharging Provider: Ricky Alonzo MD DS: Diagnosis Problem List Completed Was Problem List Reviewed/Reconciled?: Yes Hospital Course Hospital Course Hospital course: Patient is a 73-year-old female with past medical history significant for Sweet syndrome, anxiety, depression, spondylosis, history of DVT and PE [2020], varicose veins and primary hypertension presented today with a chief complaint of altered mental status. Patient will be admitted for workup and management of altered mental status. With regards to her altered mental status, workup including MRI brain which showed chronic microvascular white matter changes and no acute stroke. The etiology of her altered mental status at this time is most likely TIA or polypharmacy. Patient was evaluated by speech therapy, physical therapy and neurology. Neurology recommended to discharge on low-dose aspirin and atorvastatin 40 Mg p.o. at bedtime. Upon discharge discontinued hydrocodone. MRI brain showed chronic microvascular white matter changes. All patient's labs are now returning to her baseline. Patient is now clinically stable and fit for discharge to home with home health. Discharge diagnoses: 1. Altered mental status secondary to acute toxic encephalopathy?resolved 2. Stroke ruled out 3. Likely TIA 4. Polypharmacy 5. Status post left patella ORIF 11/29/2024 6. Primary hypertension 7. Anxiety 8. Depression 9. Spondylosis 10. History of DVT and PE [2020] 11. 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 You have been started on aspirin for your suspected TIA. Take 1 tablet once a day ? You have been started on a cholesterol medication. Take 1 at night. ? You have been started on a medication for pain meloxicam. Take 1 tablet/day as necessary. ? We have stopped your hydrocodone. Do not take any more medication and discard of any extra pills at home. ? We have stopped your naproxen. Do not take any medication and discard of any extra pills at home. ? Continue the rest of your home medication as before - Follow-up with your orthopedic surgeon, Dr. Kitchen for your left patella fracture. ? Follow-up with neurologist, Dr. Mitchell within 1-2 weeks of discharge. - Follow up with your primary care physician within 1 week of discharge. If you do not have a primary care physician, please follow up with the [facility] Residents clinic ([phone]) ? If you experience any new, worsening or persistent symptoms either call your primary doctor, or dial 911 or present to the emergency department. We are grateful to be able to participate in Mrs. Coffey's care. We wish her the best. Plan of care discussed with Attending Dr. Willow Alonzo MD PGY 1 Disclaimer: This note was dictated by speech recognition. Minor errors in solar energy systems designer may be present due to voice recognition software.. Time Spent with Patient Time attestation: Total time spent providing and/or coordinating discharge services: Time spent: Greater than 30 minutes (39) Exam Vital Signs Temp Pulse Resp BP Pulse Ox O2 Del Method 97.3 F 84 16 159/95 H 96 Room Air 12/10/24 12:00 12/10/24 15:10 12/10/24 12:00 12/10/24 15:10 12/10/24 12:00 12/10/24 12:00 Narrative Exam Constitutional Alert, oriented x 3 and comfortable. Elderly female HEENT Vision grossly intact. Patent nares. Trachea midline Respiratory Chest normal on inspection and clear auscultation bilaterally Cardiovascular S1 and S2 audible, RRR. No murmurs carotid bruit. No gross JVD. Abdominal Soft and non tender to palpation in all quadrants. BS + Genitourinary No bladder tenderness, no flank pain. Normal to palpation Musculoskeletal Extremities tone within normal limits. No LE edema. Skin Warm, dry and intact. Left leg covered in brace Psychiatric Patient has good affect, is cooperative Neurological CN II - XII grossly intact. Extremity motor and sensation grossly intact. 1A: Level of Consciousness - Normal +0 1B: Ask Month and Age - Both correct + 0 1C: Blink Eyes & Squeeze Hands - Performs Both Tasks + 0 2: Test Horizontal Extraocular Movements - Normal + 0 3: Test Visual [place] - Normal + 0 4: Test Facial Palsy (Use Grimace if Obtunded) - Normal + 0 5A: Test Left Arm Motor Drift - No Drift for 10 Seconds + 0 5B: Test Right Arm Motor Drift - No Drift for 10 Seconds + 0 6A: Test Left Leg Motor Drift - No Drift for 5 Seconds + 0 6B: Test Right Leg Motor Drift - No Drift for 5 Seconds + 0 7: Test Limb Ataxia (FNF/Heel-Chapa) - No Ataxia + 0 8: Test Sensation - Normal; No sensory loss + 0 9: Test Language/Aphasia - Normal + 0 10: Test Dysarthria - Normal + 0 11: Test Extinction/Inattention - No abnormality + 0 NIHSS Score: 0 Discharge Plan Plan Patient Disposition: Home w/HOME HEALTH Patient condition on transfer: Stable and Benefits outweigh risks Care Plan Goals: ? You have been started on aspirin for your suspected TIA. Take 1 tablet once a day ? You have been started on a cholesterol medication. Take 1 at night. ? You have been started on a medication for pain meloxicam. Take 1 tablet/day as necessary. ? We have stopped your hydrocodone. Do not take any more medication and discard of any extra pills at home. ? We have stopped your naproxen. Do not take any medication and discard of any extra pills at home. ? Continue the rest of your home medication as before - Follow-up with your orthopedic surgeon, Dr. Kitchen for your left patella fracture. ? Follow-up with neurologist, Dr. Mitchell within 1-2 weeks of discharge. - Follow up with your primary care physician within 1 week of discharge. If you do not have a primary care physician, please follow up with the [facility] Residents clinic ([phone]) ? If you experience any new, worsening or persistent symptoms either call your primary doctor, or dial 911 or present to the emergency department. Prescriptions/Referrals Prescriptions/Med Rec: New atorvastatin 40 mg tablet 40 mg PO QPM 30 Days Qty: 30 0RF aspirin 81 mg tablet 81 mg PO QDAY 30 Days Qty: 30 0RF meloxicam 7.5 mg tablet 7.5 mg PO QDAY PRN (Reason: LEg pain) 5 Days Qty: 5 0RF Continued amlodipine 5 mg tablet 10 mg PO QDAY gabapentin 100 mg capsule 300 mg PO .COMPLEX Rx Instructions: 300 mg orally 4x daily; fluoxetine [Prozac] 20 mg capsule 40 mg PO QDAY progesterone micronized 200 mg capsule 200 mg PO QDAY Patient Comments: TAKE 1 CAPSULE BY MOUTH EVERY DAY AT BEDTIME FOR 30 DAYS omeprazole 20 mg capsule,delayed release(DR/EC) 20 mg PO QDAY Patient Comments: TAKE 1 CAPSULE BY MOUTH EVERY DAY colchicine 0.6 mg tablet 0.6 mg PO DAILY Patient Comments: TAKE 1 TABLET BY MOUTH EVERY DAY fluticasone propionate 50 mcg/actuation spray,suspension 1 spray INTRANASAL Q12H Patient Comments: INSTILL 1 SPRAY INTO EACH NOSTRIL ONCE A DAY DIRECTED FOR 30 DAYS estradiol 0.025 mg/24 hr patch semiweekly 0.025 mg TOPICAL Q72H Patient Comments: APPLY 1 PATCH TRANSDERMALLY TWICE A WEEK lamotrigine 100 mg tablet extended release 24hr 100 mg PO QDAY Patient Comments: TAKE 1 TABLET BY MOUTH TWICE A DAY Discontinued hydrocodone-acetaminophen 5-325 mg tablet 1 tab PO Q6H MDD 9 PRN (Reason: pain) Qty: 14 0RF naproxen 500 mg tablet 500 mg PO BID Referrals: Reyna Robison MD [Primary Care Provider] - Carlos Kitchen MD [Physician] - Mike Mitchell MD [Physician] - Patient/Caregiver Discharge Instructions Discharge Activity: as per physical therapy Education Materials: Discharge Instructions for Stroke, ED TIA: Transient Ische tre Attack Print Language: Citizen Of [place] Stand Alone Forms: [place] Award Info., Patient Portal Info Letter Discharge Order Discharge Orders: Discharge (Routine); Ordered 12/10/24 Ordered By: Ricky Alonzo Quality Discharge Quality Measures VTE prophylaxis Attestestation Attestation I have examined the patient, reviewed labs and imaging findings, discussed the case with the resident(s), and reviewed entered orders. I agree with the plan of care as outlined in this note. Time Spent: [address] Willow MD
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
--- NOTE | 2024-12-11 09:52 | PC.CM ---
[facility] accepted patient and start of care date set for 12/12.
== END 2024-12-10 18:55 | disposition home health service (06) ==
LOC: SERX 14:12 → SERHOLD 12-10 06:54 → S2NX 12-10 06:54
PROVIDERS: Admitting Provider Student in an Organized Health Care Education/Training Program; Emergency Provider Family Medicine; PCP Family Medicine; Visit Provider Student in an Organized Health Care Education/Training Program
DX: E78.00 Pure hypercholesterolemia, unspecified (principal); M47.9 Spondylosis, unspecified; L98.2 Febrile neutrophilic dermatosis [Sweet]; J45.909 Unspecified asthma, uncomplicated; Z79.82 Long term (current) use of aspirin; I10 Essential (primary) hypertension; H53.2 Diplopia; G93.40 Encephalopathy, unspecified; F41.9 Anxiety disorder, unspecified; F32.A Depression, unspecified; Z86.711 Personal history of pulmonary embolism; Z86.718 Personal history of other venous thrombosis and embolism; Z86.73 Personal history of transient ischemic attack (TIA), and cerebral infarction without residual deficits; R29.6 Repeated falls; T88.7XXA Unspecified adverse effect of drug or medicament, initial encounter; S82.002D Unspecified fracture of left patella, subsequent encounter for closed fracture with routine healing; I83.90 Asymptomatic varicose veins of unspecified lower extremity; Z01.810 Encounter for preprocedural cardiovascular examination
CPT/HCPCS: 36415; 70551; 80053; 80061; 80307; 80320; 80329; 81001; 83036; 83735; 84100; 84443; 84484; 85025; 92610; 93005; 93970; 94664; 96361; 96372; 96374; 97163; 99285; G0378; J0612; J1644; J2060; J7040; A9270; G0480

== ENCOUNTER → 2025-01-01 | Outpatient (CLI) | payer MEDICARE, BC, SELFPAY ==
[2025-01-01 13:11] LABS: Collection Type, Urine Clean Catch
[2025-01-01 14:36] LABS: Amorphous Crystals,Urine Present (Absent); Bilirubin,Urine Negative (Negative); Blood,Urine Negative (Negative); Clarity,Urine Clear (Clear/Hazy); Color,Urine Yellow (Lt Yel-Yel); Culture Indicated,Urine Not Indicated; Glucose, Urine Negative (Negative); Ketones,Urine Negative (Negative); Leukocyte Esterase,Urine Positive (Negative); Nitrite,Urine Negative (Negative); Protein,Urine Trace (Neg - Trace); RBC,Urine 2 /hpf (0-3); Specific Gravity,Urine 1.028 (1.001-1.035); Squamous Epithelial Cell,Urine 10 /hpf (0-5); Urobilinogen,Urine Negative mg/dL (0.0-1.0); WBC,Urine 2 /hpf (0-5)
== END | disposition home or self-care (01) ==
LOC: SLDO 13:00
PROVIDERS: Referring Provider Internal Medicine; Visit Provider Internal Medicine
DX: N39.0 Urinary tract infection, site not specified (principal)
CPT/HCPCS: 81001

== ENCOUNTER → 2025-01-08 | Outpatient (CLI) | payer MEDICARE, BC, SELFPAY ==
--- NOTE | 2025-01-08 14:51 | XR_ITS ---
Examination: Knee, left , 3 views Technique: Knee AP, lateral, oblique 3 views Date and time of exam: January 08, 2025 1556 hours Comparison November 29, 2014 INDICATIONS: Acute patellar fracture postop reduction internal examination November 29, 2024 FINDINGS: Early healing fracture patella with stable and satisfactory alignment Prominent osteopenia IMPRESSION: Early healing fracture patella with stable and satisfactory alignment
== END | disposition home or self-care (01) ==
PROVIDERS: PCP Internal Medicine; Referring Provider Orthopaedic Surgery; Visit Provider Orthopaedic Surgery
DX: S82.002D Unspecified fracture of left patella, subsequent encounter for closed fracture with routine healing (principal); Z87.81 Personal history of (healed) traumatic fracture; Z98.890 Other specified postprocedural states; X58.XXXD Exposure to other specified factors, subsequent encounter
CPT/HCPCS: 73562

== ENCOUNTER → 2025-02-17 | Outpatient (CLI) | payer MEDICARE, BC, SELFPAY ==
[2025-02-17 17:37] LABS: Basophils # (Auto) 0.0 Thou/mm3 (0.0-0.2); Basophils % (Auto) 1 % (0-2.5); Eosinophils # (Auto) 0.4 Thou/mm3 (0.0-0.5); Eosinophils % (Auto) 6 % (0-10); Hematocrit 34.7 % (36.0-46.0); Hemoglobin 11.3 g/dL (12.0-16.0); Immature Granulocytes Auto 0.02 Thou/mm3 (0.00-0.00); Lymphocytes # (Auto) 2.2 Thou/mm3 (1.0-4.8); Lymphocytes % (Auto) 33 % (10-50); Mean Corpuscular HGB Conc 32.6 g/dl (31.0-37.0); Mean Corpuscular Hemoglobin 30.4 pg (25.0-35.0); Mean Corpuscular Volume 93 fL (80-100); Monocytes # (Auto) 0.6 Thou/mm3 (0.0-0.8); Monocytes % (Auto) 8 % (0-12); Neutrophils # (Auto) 3.5 Thou/mm3 (1.8-7.7); Neutrophils % (Auto) 52 % (37-80); Nucleated Red Blood Cell # 0.00 Thou/mm3 (0.00-0.00); Nucleated Red Blood Cell % 0 /100 WBC (0); Platelet Count 235 Thou/mm3 (140-440); RDW Standard Deviation 45.7 fL (36.4-46.3); Red Blood Count 3.72 Miln/mm3 (4.00-5.20); White Blood Count 6.8 Thou/mm3 (3.6-11.0)
[2025-02-17 18:02] LABS: Sed Rate (ESR) 7 mm/hr (0-30)
[2025-02-17 18:05] LABS: Alanine Aminotransferase 16 U/L (10-49); Albumin, Serum 4.5 gm/dL (3.4-4.8); Albumin/Globulin Ratio 1.8 (1.2-2.2); Alkaline Phosphatase 64 U/L (46-116); Anion Gap 10 (7-16); Aspartate Amino Transferase 19 U/L (0-34); BUN/Creatinine Ratio 14 Ratio (12-20); Bilirubin,Total 0.4 mg/dL (0.3-1.2); Blood Urea Nitrogen 14 mg/dL (9-23); C-Reactive Protein < 0.5 mg/dL (0.0-0.9); Calcium 9.3 mg/dL (8.3-10.6); Calcium (Corrected) 9.3 mg/dL (8.5-10.1); Carbon Dioxide 27.6 mMol/L (20.0-31.0); Chloride 104 mMol/L (98-107); Creatinine (Component) 1.0 mg/dL (0.6-1.3); Globulin 2.5 gm/dL (2.3-3.5); Glucose 124 mg/dL (74-106); Osmolality,Calculated 284 (275-295); Potassium 4.0 mMol/L (3.4-5.1); Sodium 142 mMol/L (136-145); Total Protein 7.0 gm/dL (5.7-8.2); eGFR 60 See Note
== END | disposition home or self-care (01) ==
LOC: COPL 16:39
PROVIDERS: PCP Internal Medicine; Referring Provider Internal Medicine; Visit Provider Internal Medicine
DX: E55.9 Vitamin D deficiency, unspecified (principal); F34.1 Dysthymic disorder; I10 Essential (primary) hypertension; J30.9 Allergic rhinitis, unspecified; L98.2 Febrile neutrophilic dermatosis [Sweet]; M06.09 Rheumatoid arthritis without rheumatoid factor, multiple sites; M72.2 Plantar fascial fibromatosis; M79.18 Myalgia, other site; M81.0 Age-related osteoporosis without current pathological fracture; R20.2 Paresthesia of skin; R21 Rash and other nonspecific skin eruption; Z68.23 Body mass index [BMI] 23.0-23.9, adult; Z68.24 Body mass index [BMI] 24.0-24.9, adult; Z79.899 Other long term (current) drug therapy
CPT/HCPCS: 36415; 80053; 85025; 85652; 86140

== ENCOUNTER → 2025-02-20 | Outpatient (CLI) | payer MEDICARE, BC, SELFPAY ==
--- NOTE | 2025-02-20 | XR_ITS ---
Examination: Knee, left , 3 views Technique: Knee AP, lateral, oblique 3 views Date and time of exam: February 20, 2025 1240 hours INDICATIONS: History acute patellar fracture postop reduction internal fixation November 29, 2024. FINDINGS: Prominent osteopenia Significant partial healing patellar fracture with stable and satisfactory alignment IMPRESSION: Significant partial healing patellar fracture with stable and satisfactory alignment.
== END | disposition home or self-care (01) ==
LOC: CDIM 11:57
PROVIDERS: PCP Internal Medicine; Referring Provider Orthopaedic Surgery; Visit Provider Orthopaedic Surgery
DX: S82.002D Unspecified fracture of left patella, subsequent encounter for closed fracture with routine healing (principal); X58.XXXD Exposure to other specified factors, subsequent encounter; Z98.890 Other specified postprocedural states
CPT/HCPCS: 73562

== ENCOUNTER → 2025-02-21 | Outpatient (CLI) | payer MEDICARE, BC, SELFPAY ==
[2025-02-21 11:08] LABS: Collection Type, Urine Clean Catch
[2025-02-21 11:31] LABS: Basophils # (Auto) 0.0 Thou/mm3 (0.0-0.2); Basophils % (Auto) 1 % (0-2.5); Eosinophils # (Auto) 0.4 Thou/mm3 (0.0-0.5); Eosinophils % (Auto) 7 % (0-10); Hematocrit 35.8 % (36.0-46.0); Hemoglobin 11.5 g/dL (12.0-16.0); Immature Granulocytes Auto 0.02 Thou/mm3 (0.00-0.00); Lymphocytes # (Auto) 1.9 Thou/mm3 (1.0-4.8); Lymphocytes % (Auto) 35 % (10-50); Mean Corpuscular HGB Conc 32.1 g/dl (31.0-37.0); Mean Corpuscular Hemoglobin 29.9 pg (25.0-35.0); Mean Corpuscular Volume 93 fL (80-100); Monocytes # (Auto) 0.5 Thou/mm3 (0.0-0.8); Monocytes % (Auto) 9 % (0-12); Neutrophils # (Auto) 2.5 Thou/mm3 (1.8-7.7); Neutrophils % (Auto) 48 % (37-80); Nucleated Red Blood Cell # 0.00 Thou/mm3 (0.00-0.00); Nucleated Red Blood Cell % 0 /100 WBC (0); Platelet Count 226 Thou/mm3 (140-440); RDW Standard Deviation 46.5 fL (36.4-46.3); Red Blood Count 3.84 Miln/mm3 (4.00-5.20); White Blood Count 5.2 Thou/mm3 (3.6-11.0)
[2025-02-21 11:34] LABS: Bilirubin,Urine Negative (Negative); Blood,Urine Negative (Negative); Clarity,Urine Clear (Clear/Hazy); Color,Urine Colorless (Lt Yel-Yel); Culture Indicated,Urine Not Indicated; Glucose, Urine Negative (Negative); Hyaline Casts,Urine < 1 /hpf (0-1); Ketones,Urine Negative (Negative); Leukocyte Esterase,Urine Negative (Negative); Nitrite,Urine Negative (Negative); PH,Urine 7.5 (5.0-7.0); Protein,Urine Negative (Neg - Trace); RBC,Urine < 1 /hpf (0-3); Specific Gravity,Urine 1.007 (1.001-1.035); Squamous Epithelial Cell,Urine 4 /hpf (0-5); Urobilinogen,Urine Negative mg/dL (0.0-1.0); WBC,Urine < 1 /hpf (0-5)
[2025-02-21 11:42] LABS: Glucose Estimated Average 105 mg/dL (80-131); Hemoglobin A1C 5.3 % Hgb (4.8-6.0)
[2025-02-21 11:47] LABS: Alanine Aminotransferase 18 U/L (10-49); Albumin, Serum 4.5 gm/dL (3.4-4.8); Albumin/Globulin Ratio 1.8 (1.2-2.2); Alkaline Phosphatase 64 U/L (46-116); Anion Gap 10 (7-16); Aspartate Amino Transferase 22 U/L (0-34); BUN/Creatinine Ratio 16 Ratio (12-20); Bilirubin,Total 0.5 mg/dL (0.3-1.2); Blood Urea Nitrogen 16 mg/dL (9-23); Calcium 8.9 mg/dL (8.3-10.6); Calcium (Corrected) 8.9 mg/dL (8.5-10.1); Carbon Dioxide 26.7 mMol/L (20.0-31.0); Cardiac Risk Estimate 3.4 RATIO (3.7-5.6); Chloride 106 mMol/L (98-107); Cholesterol 155 mg/dL (132-200); Creatinine (Component) 1.0 mg/dL (0.6-1.3); Free T3 2.6 pg/mL (2.3-4.2); Free T4 (Free Thyroxine) 0.98 ng/dL (0.89-1.76); Globulin 2.5 gm/dL (2.3-3.5); Glucose 100 mg/dL (74-106); HDL Cholesterol 45 mg/dL (40-60); LDL Cholesterol,Calculated 93 mg/dL (0-130); Osmolality,Calculated 286 (275-295); Potassium 3.9 mMol/L (3.4-5.1); Sodium 143 mMol/L (136-145); Thyroid Stimulating Hormone 1.71 uIU/mL (0.55-4.78); Total Protein 7.0 gm/dL (5.7-8.2); Triglycerides 84 mg/dL (30-150); eGFR 60 See Note
[2025-02-21 11:52] LABS: Folate > 24.00 ng/mL (>5.38); Vitamin B12 1381 pg/mL (211-911); Vitamin D 25 Hydroxy Total 36.3 ng/mL (7.3-40.2)
== END | disposition home or self-care (01) ==
LOC: COPL 10:04
PROVIDERS: PCP Family Medicine; Referring Provider Nurse Practitioner; Visit Provider Nurse Practitioner
DX: I10 Essential (primary) hypertension (principal); E78.5 Hyperlipidemia, unspecified; E55.9 Vitamin D deficiency, unspecified; Z13.1 Encounter for screening for diabetes mellitus; R53.83 Other fatigue
CPT/HCPCS: 36415; 80053; 80061; 81001; 82306; 82607; 82746; 83036; 84439; 84443; 84481; 85025

== ENCOUNTER 2025-04-29 09:45 | Outpatient (RCR) | payer MEDICARE, BC, SELFPAY ==
--- NOTE | 2025-04-29 10:07 | PTNOTE_ITS ---
PT OP Initial Eval Patient Information Outpatient Physical Therapy Treatment Date: 04/29/25 Visit Reasons: LEFT PATELLA FRACTURE Medical Diagnosis: [id number] Treatment Dx #1: L knee decreased ROM Treatment Dx #2: L knee pain Start of Care: 04/29/25 Date of Onset: 11/29/24 Smoking Status Smoking Status: Never smoker Initial Assessment Subjective: Pt is 74 yr old female s/p L patella FX with ORIF presents ambulating without assistive device and reports difficulty with bending the knee due to stiffness. She points to the patella borders as site of pain. She is limited with walking distance and is unable to vacuum. PMH: HTN, high cholesterol Imaging: Xrays in EMR Pt goal: to bend the knee more and walk further Objective: L knee AROM: ? Flexion:80 deg ? Extension: full ? PROM: 85 deg flexion ? SLR: 45 deg with slight extensor lag ? Strength: L quads 4-/5 limited by patella compression pain, hamstrings 4/5 ? Antalgic gait pattern with decreased stance time on L Assessment: Pt presentation consistent with referring Dx with decreased ROM, strength and WB tolerance on the L knee. Pt requires skilled therapy and has good rehab potential to meet goals. Short Term and Jail Goals 1. Independent with HEP ? 2. Improved knee flexion ROM to 110 deg ? 3. Improved quad and hamstring strength to 4/5 ? 4. Improved ambulatory tolerance to community distances with symmetrical ? gait pattern. Treatment Plan ?1. Manual therapy ? 2. Therex ? 3. Modalities as indicated, moist heat, ice, estim Frequency and Duration: 2x a week for 16 visits plus the evaluation. We will need provider's signature to continue past 8 Rx sessions which is what the order says. Certification Dates: 04/29/25 to 07/28/25 Procedure Charges OP PT Eval Mod Complex 30 minutes: Yes
== END 2025-04-29 23:59 | disposition home or self-care (01) ==
LOC: CPTX 09:45
PROVIDERS: PCP Orthopaedic Surgery; Referring Provider Orthopaedic Surgery; Visit Provider Orthopaedic Surgery
DX: M25.562 Pain in left knee (principal); I10 Essential (primary) hypertension; S82.002D Unspecified fracture of left patella, subsequent encounter for closed fracture with routine healing; X58.XXXD Exposure to other specified factors, subsequent encounter
CPT/HCPCS: 97162

== ENCOUNTER → 2025-05-19 | Outpatient (CLI) | payer MEDICARE, BC, SELFPAY ==
--- NOTE | 2025-05-19 15:41 | XR_ITS ---
EXAMINATION: Sinus 3-4 views TECHNIQUE: Rimma Huitron lateral submentovertex sinus series 4 views Date and time: May 19, 2025, 1627 hours, comparison March 25, 2024 INDICATIONS: Chronic sinus pressure and pain months. FINDINGS: Prominent opacity frontal ethmoid air cells Mucosal thickening in the maxillary antra up to 15 mm Haziness in the sphenoid air cells. No fluid levels or retention cyst IMPRESSION: Chronic pansinusitis, severe frontal ethmoid air cells
== END | disposition home or self-care (01) ==
PROVIDERS: PCP Family Medicine; Referring Provider Nurse Practitioner Family; Visit Provider Nurse Practitioner Family
DX: J32.4 Chronic pansinusitis (principal)
CPT/HCPCS: 70220

== ENCOUNTER 2025-05-27 13:00 | Outpatient (RCR) | payer MEDICARE, BC, SELFPAY ==
--- NOTE | 2025-05-01 09:17 | PT.ODAYNRPT ---
PT Outpatient Daily Note OP Daily Note Outpatient Physical Therapy Treatment Date: 05/01/25 Visit Reasons: left patella fracture Subjective: Pt c/o minimal Lt knee pain which increases with bending. States she took pain medication prior to her visit. Objective: See F/S for therex performed Assessment: No increase in pain with therex. Performed knee flexion best with SB rollout with strap to assist. Ice pack applied post session. Educated on importance of maintaining consistency with HEP, pt understood and states she is performing knee flexion stretches 2x/day. Plan: Continue with POC Length of Time (minutes) of Treatment: 30 Minutes Procedure Charges Therapeutic Exercise 30 minutes: Yes
--- NOTE | 2025-05-21 17:59 | PT.ODAYNRPT ---
PT Outpatient Daily Note OP Daily Note Outpatient Physical Therapy Treatment Date: 05/21/25 Visit Reasons: left patella fracture Subjective: Pain with bending the knee Objective: See f/S for therex Assessment: Scar tissue limits flexion rOM Plan: Continue per POC Length of Time (minutes) of Treatment: 30 Minutes Procedure Charges Therapeutic Exercise 30 minutes: Yes
--- NOTE | 2025-05-27 14:23 | PT.ODAYNRPT ---
PT Outpatient Daily Note OP Daily Note Outpatient Physical Therapy Treatment Date: 05/27/25 Visit Reasons: left patella fracture Subjective: Pain with bending the knee Objective: See f/S for therex Assessment: Scar tissue limits flexion ROM to under 90 deg Plan: Continue per POC Length of Time (minutes) of Treatment: 30 Minutes Procedure Charges Therapeutic Exercise 30 minutes: Yes
== END 2025-05-30 23:59 | disposition home or self-care (01) ==
LOC: CPTX 13:00
PROVIDERS: PCP Orthopaedic Surgery; Referring Provider Orthopaedic Surgery; Visit Provider Orthopaedic Surgery
DX: M25.562 Pain in left knee (principal); M25.662 Stiffness of left knee, not elsewhere classified; S82.002D Unspecified fracture of left patella, subsequent encounter for closed fracture with routine healing; I10 Essential (primary) hypertension
CPT/HCPCS: 97110

== ENCOUNTER → 2025-06-05 | Outpatient (CLI) | payer MEDICARE, BC, SELFPAY ==
--- NOTE | 2025-06-05 10:15 | XR_ITS ---
Examination: Screening digital mammography, bilateral Computer aided detection 3-D breast Tomosynthesis, bilateral Date and time of exam: 06/05/2025, 10:10 a.m. Comparisons: 05/21/2024 Indications: Screening Technique: Nonmagnified MLO, CC views of the breasts to been obtained, reconstructed from 3-D Tomosynthesis images. R2 computer aided detection program utilized for evaluation of suspicious masses and/or abnormal calcifications. 3-D Tomosynthesis images obtained. Technologist: Findings: The breasts are heterogeneously dense, which may obscure small masses. Asymmetry, right lower outer quadrant, 4.8 cm from the nipple on the cc view. Otherwise, no evidence of abnormal masses or suspicious calcifications. Impression: Right breast asymmetry. Spot compression views and possible ultrasound evaluation recommended.
== END | disposition home or self-care (01) ==
LOC: CDIM 09:58
PROVIDERS: Referring Provider Nurse Practitioner Family; Visit Provider Nurse Practitioner Family
DX: Z12.31 Encounter for screening mammogram for malignant neoplasm of breast (principal); R92.8 Other abnormal and inconclusive findings on diagnostic imaging of breast
CPT/HCPCS: 77063; 77067

== ENCOUNTER 2025-06-18 09:00 | Outpatient (RCR) | payer MEDICARE, BC, SELFPAY ==
--- NOTE | 2025-06-03 15:46 | PT.ODS1RPT ---
PT OP Progress/Discharge Note Date of Service: 06/03/25 Progress Note/DC Note Progress Note/Discharge Note: Progress Note Service Continue Service or Discharge: Continue Service Status Subjective: Pain with bending the knee and limited ROM Objective: See F/S for therex L knee ArOM: Flexion: 74 deg Extension: full Strength: Quads: 4-/5 Assessment: Pt has attended the eval and 4 Rx sessions with slow progress with therapy goals due to continued myofascial limitations and pain of L knee. PT recommends LEONARD to improve flexion ROM. Plan: Continue with visits up to 16 if progressing with goals. Procedure Charges Therapeutic Exercise 30 minutes: Yes
--- NOTE | 2025-06-05 09:35 | PT.ODS1RPT ---
PT OP Progress/Discharge Note Date of Service: 06/05/25 Progress Note/DC Note Progress Note/Discharge Note: Progress Note Service Continue Service or Discharge: Continue Service Status Subjective: Pain with bending the knee and limited ROM Objective: See F/S for therex L knee ArOM: PROM: Flexion: 74 deg 95 deg Extension: full Strength: Quads: 4-/5 Assessment: Pt has attended the eval and 5 Rx sessions with fair progress with therapy goals due to continued myofascial limitations and pain of L knee. PT recommends LEONARD to improve flexion ROM. Plan: Continue with visits up to 16 if progressing with goals. Procedure Charges Therapeutic Exercise 30 minutes: Yes
--- NOTE | 2025-06-11 09:52 | PT.ODAYNRPT ---
PT Outpatient Daily Note OP Daily Note Outpatient Physical Therapy Treatment Date: 06/11/25 Subjective: Pain with bending the knee but she is ambulating in the community Objective: See f/S for therex Assessment: Improved PROM into flexion ROM to 90 deg Plan: Continue per POC Length of Time (minutes) of Treatment: 30 Minutes Procedure Charges Therapeutic Exercise 30 minutes: Yes
--- NOTE | 2025-06-18 09:47 | PT.ODAYNRPT ---
PT Outpatient Daily Note OP Daily Note Outpatient Physical Therapy Treatment Date: 06/11/25 Visit Reasons: LEFT KNEE Subjective: Pain with bending the knee but she is ambulating in the community Objective: See f/S for therex Assessment: Improved PROM into flexion ROM to 90 deg Plan: Continue per POC Length of Time (minutes) of Treatment: 30 Minutes Procedure Charges Therapeutic Exercise 30 minutes: Yes
== END 2025-06-29 23:59 | disposition home or self-care (01) ==
LOC: CPTX 09:00
PROVIDERS: PCP Orthopaedic Surgery; Referring Provider Orthopaedic Surgery; Visit Provider Orthopaedic Surgery
DX: M25.562 Pain in left knee (principal); S82.002D Unspecified fracture of left patella, subsequent encounter for closed fracture with routine healing; X58.XXXD Exposure to other specified factors, subsequent encounter
CPT/HCPCS: 97110

== ENCOUNTER → 2025-07-02 | Outpatient (CLI) | payer MEDICARE, BC, SELFPAY ==
--- NOTE | 2025-07-02 13:40 | XR_ITS ---
Examination: Bone densitometry Date and time of exam: July 02, 2025, 1411 hours INDICATION: Menopause age 54 postmenopausal knee fracture vitamin D and calcium 1 year, family history, mother hip fracture Technique: Lumbar spine and hip total bone mineralization values of an calculated. Peak reference and age match control results have been displayed. Findings: Lumbar spine total bone mineralization is 1.016 gm/cm2. This is 0.3 standard deviations below peak reference. This is 2.0 standard deviations above age-matched controls. Hip total bone mineralization is 0.749 gm/cm2 This is 1.6 standard deviations below peak reference. This is 0.1 standard deviations above age-matched controls Impression: There is normal mineralization based on lumbar spine measurements. There is osteoporosis based on hip measurements
== END | disposition home or self-care (01) ==
PROVIDERS: Referring Provider Nurse Practitioner Family; Visit Provider Nurse Practitioner Family
DX: M81.0 Age-related osteoporosis without current pathological fracture (principal)
CPT/HCPCS: 77080

== ENCOUNTER 2025-07-08 11:00 | Outpatient (RCR) | payer MEDICARE, BC, SELFPAY ==
--- NOTE | 2025-07-02 18:23 | PT.ODAYNRPT ---
PT Outpatient Daily Note OP Daily Note Outpatient Physical Therapy Treatment Date: 07/02/25 Visit Reasons: LEFT KNEE PAIN Subjective: Pain with bending the knee but she is ambulating in the community Objective: See f/S for therex MT: PROM into flexion x7' to end-range with overpressure Assessment: Improved PROM into flexion ROM to 97 deg Plan: Continue per POC Length of Time (minutes) of Treatment: 30 Minutes Procedure Charges Therapeutic Exercise 30 minutes: Yes
--- NOTE | 2025-07-08 14:03 | PT.ODS1RPT ---
PT OP Progress/Discharge Note Date of Service: 07/08/25 Progress Note/DC Note Progress Note/Discharge Note: Progress Note Patient Information Visit Reasons: LEFT KNEE PAIN Service Continue Service or Discharge: Continue Service Status Subjective: Pain with bending the knee and limited ROM Objective: See F/S for therex L knee ArOM: PROM: Flexion: 85 deg 100 deg Extension: full Strength: Quads: 4-/5 Assessment: Pt has attended the eval and 9 Rx sessions with fair progress with therapy goals due to continued myofascial limitations and pain of L knee. Pt has improved knee flexion PROM to 100 deg with overpressure. Plan: Continue with visits up to 16. Extend POC dates to 08/28/25 to complete therapy visits Procedure Charges Therapeutic Exercise 30 minutes: Yes
== END 2025-07-30 23:59 | disposition home or self-care (01) ==
LOC: CPTX 11:00
PROVIDERS: PCP Orthopaedic Surgery; Referring Provider Orthopaedic Surgery; Visit Provider Orthopaedic Surgery
DX: M25.562 Pain in left knee (principal); M25.662 Stiffness of left knee, not elsewhere classified; S82.002D Unspecified fracture of left patella, subsequent encounter for closed fracture with routine healing; X58.XXXD Exposure to other specified factors, subsequent encounter; I10 Essential (primary) hypertension
CPT/HCPCS: 97110

== ENCOUNTER → 2025-07-29 | Outpatient (CLI) | payer MEDICARE, BC, SELFPAY ==
--- NOTE | 2025-07-29 16:00 | XR_ITS ---
Study: Facial bones. INDICATION: Chronic maxillary sinusitis with sinus pressure and congestion for several years. TECHNIQUE: 2 mm slice thickness axial without contrast. 2 mm sagittal and coronal reformats. 1 mm axial reformats. Radiation dose 182 mGy centimeters with dose reduction technique. 713 images at 1557 hours 26 February 2025. FINDINGS: The patient was imaged from the midportion of the brain to the submandibular region. All bony anatomy of the nose, sinuses and mastoid air cells is normal. There is a subtle focus of mucoperiosteal thickening within the posterior oronasal wall of the left maxillary sinus. The nasal turbinate mucosa is not significantly engorged. The nasal airways are clear. There are no sinus air-fluid levels. The mastoid air cells are well pneumatized. IMPRESSION: No evidence for significant sinusitis. No acute diagnostic abnormality.
== END | disposition home or self-care (01) ==
PROVIDERS: PCP Internal Medicine; Referring Provider Internal Medicine; Visit Provider Internal Medicine
DX: J32.0 Chronic maxillary sinusitis (principal)
CPT/HCPCS: 70486